=== PATIENT | female | born 1950 | race Caucasian/White ===

== ENCOUNTER → 2016-08-11 | Day surgery (SDC) | payer OTHER ==
[2016-08-06 15:25] VITALS: BMI 27.0
[~2016-08-11] VITALS: Ht 167.6 cm; Wt 77.5 kg
[~2016-08-11] MED LIST: ALBU4TAB10 INH; ALBUAER19 INH; ASPI81TA21 PO; ASPI81TA28 PO; ATOR-22 PO; ATOR-24 PO; ATROPINE SULFATE 0.1 MG/ML 5ML SYR IV PRN; ATV5 PO; BENZ100C84 PO; BIMA0.01 OP; BIMA0.01 OPB; CALC500C70 PO; CARBDRO OPB; CLB/200 PO; CLB200 PO; CLC100 PO; CLINDAMYCIN PHOS 150 MG/ML 2 ML VIAL ONE; CLR10 PO; DEXAMETHASONE SOD INJ 4 MG/ML VIAL ONE; DOXY100C76 PO; EpHEDrine SULFATE INJ 50 MG/ML AMP IV PRN; EpHEDrine SULFATE INJ 50 MG/ML AMP ONE; FENTANYL CITRATE INJ 50 MCG/1 ML 2 ML VIAL IV PRN; FENTANYL CITRATE INJ 50 MCG/1 ML 2 ML VIAL ONE; FOLI1TAB7 PO; GABA-112 PO; GLYCOPYRROLATE INJ 0.2 MG/ML VIAL ONE; LABETALOL HCL IV 5 MG/ML 20ML IV PRN; LACT10CA3; LACT1CAP3 PO; LACTATED RINGER'S 1000ML 1,000 ML IV SCH; LARYING-O-JET KIT (LTA) EXT ONE; LIDOCAINE HCL 2% 2 ML VIAL (20MG/ML) ONE; LORA-741 PO; MIDAZOLAM HCL 1 MG/ML 2ML VIAL ONE; MOME200A INH; MONT1TAB3 PO; MONT1TAB5 PO; NEOSTIGMINE METHYLSULFATE 5 MG/5 ML SYR ONE; OMEG10007 PO; ONDANSETRON INJ 2 MG/ML 2 ML VIAL IV PRN; ONDANSETRON INJ 2 MG/ML 2 ML VIAL ONE; OXGN; OXYC-57 PO; PANT40TA PO; PHENYLEPHRINE HCL INJ 10 MG/ML VIAL ONE; PRED10PA4 PO; PRED10TA PO; PROPOFOL IV EMULSION 10 MG/ML 20 ML VIAL IV ONE; PSYL0.524 PO; PSYL28PO3 PO; PSYL55.43 PO; ROCURONIUM BROMIDE 10 MG/ML 5 ML VIAL ONE; SACC250C3 PO; SPRIN/30 INH; TIOTCAP INH; TRAM-10 PO; ULT50X PO; VNTHFA/IN INH; WATER, STERILE FOR INJ 10 ML VIAL ONE
[2016-08-11 11:20] VITALS: BP 127/56; PULSE 100; TEMP 36.5; O2SAT 97; Ht 167.6 cm; Wt 77.5 kg
--- NOTE | 2016-08-11 14:12 | History & Physical Bridge Note ---
H&P Re-Evaluation Bridge Note: I have examined the patient, reviewed the History & Physical and in the interval since the performance of the History & Physical I have noted the following changes of clinical significance: No changes noted
--- NOTE | 2016-08-11 16:30 | Discharge Instructions ---
Discharge Instructions Admission Reason for Admission: Lung Cancer Discharge Discharge Diagnosis / Problem: Lung Cancer Discharge Goals Goal(s): Learn about illness Activity Recommendations Activity Limitations: resume your previous activity (in 24 hours) Lifting Limitations: none . Instructions / Follow-Up Instructions / Follow-Up 1. You may cough up some blood. Call physician if excessive amount noted. 2. Keep you scheduled appointment with Dr. Harris on August 19 @ 9:30 Current Hospital Diet Patient's current hospital diet: Discharge Diet Recommended Diet: Regular Diet Pending Studies Studies pending at discharge: no Medical Emergencies . Who to Call and When: Medical Emergencies: If at any time you feel your situation is an emergency, please call 911 immediately. . Non-Emergent Contact Non-Emergency issues call your: Surgeon Call Non-Emergent contact if: you have a fever . "Provider Documentation" section prepared by Lacho Nolan. VTE Core Measure Inpt VTE Proph given/why not?: Treatment not tolerated
--- NOTE | 2016-08-11 16:54 | DIAGNOSTIC IMAGING REPORT ---
INTRAOPERATIVE RADIOGRAPHS CLINICAL HISTORY: Navigational bronchoscopy. Fiducial marker placement. Fluoroscopy time: 164 seconds. FINDINGS: 2 spot fluoroscopic views of the left upper chest are presented. Correlation is made with chest CT dated 05/30/2016. The bronchoscope projects over the left upper lung. The second image shows a fiducial in place. IMPRESSION: Intraoperative bronchoscopy images as above. See operative report for detailed findings. Electronically signed by: Glen Novoa M.D. 08/11/2016 4:53 PM Dictated Date/Time: 08/11/2016 4:51 PM
--- NOTE | 2016-08-11 17:01 | DIAGNOSTIC IMAGING REPORT ---
SINGLE VIEW CHEST CLINICAL HISTORY: Status post bronchoscopy and fiducial placement. FINDINGS: An AP, portable, upright chest radiograph is compared to study dated 02/27/2016 and correlated with chest CT dated 05/31/2016. The examination is degraded by portable technique and patient rotation. The cardiomediastinal silhouette is unremarkable. There is atherosclerotic calcification of the thoracic aorta. Advanced emphysema and parenchymal scarring in the right lower lung are similar to previous. There is chronic interstitial thickening. A fiducial now projects over the left upper lobe. Minimal surrounding opacities likely represents trace hemorrhage post procedure. There is no large pleural effusion. Atelectasis is noted at the left lung base. No definite pneumothorax is seen. The skeletal structures are osteopenic. The bony thorax is grossly intact. A benign-appearing sclerotic lesion in the right humeral head is unchanged. IMPRESSION: 1. A fiducial projects over the left apex. No pneumothorax is clearly seen post procedure. 2. Minimal hazy opacities at the left apex around the fiducial likely represent minimal hemorrhage. 3. Advanced emphysema and chronic parenchymal scarring at the right lung base is similar to previous. Electronically signed by: Glen Novoa M.D. 08/11/2016 5:00 PM Dictated Date/Time: 08/11/2016 4:55 PM
--- NOTE | 2016-08-11 17:23 | Anesthesiology Progress Note ---
Anesthesia Post Op Note Date & Time Aug 11, 2016 at 17:23 Vital Signs Pain Intensity: 0 Vital Signs Past 12 Hours Date Time Temp Pulse Resp B/P Pulse Ox O2 Delivery O2 Flow Rate FiO2 08/11/16 17:20 36.2 81 16 110/57 99 Nasal Cannula 2 08/11/16 17:15 36.2 102 16 115/68 99 Nasal Cannula 2 08/11/16 17:05 91 16 109/64 100 Mask 10 08/11/16 16:55 85 16 121/74 100 Mask 10 08/11/16 16:45 36.1 93 16 118/70 100 Mask 10 08/11/16 11:20 36.5 100 22 127/56 97 Room Air Notes Mental Status: alert / awake / arousable, participated in evaluation Pt Amnestic to Procedure: Yes Nausea / Vomiting: adequately controlled Pain: adequately controlled Airway Patency, RR, SpO2: stable & adequate BP & HR: stable & adequate Hydration State: stable & adequate Anesthetic Complications: no major complications apparent CXR negative for pneumothorax
[2016-08-11 17:28] VITALS: BP 94/57; PULSE 92; TEMP 36.7; O2SAT 94
[2016-08-11 18:08] VITALS: BP 104/61; PULSE 89; TEMP 36.7; O2SAT 94
--- NOTE | 2016-08-11 23:51 | OPERATIVE REPORT ---
DATE OF OPERATION: 08/11/2016 PREOPERATIVE DIAGNOSES: 1. Left upper lobe mass. 2. History of small cell carcinoma right lower lobe, treated with chemotherapy and radiation. 3. Active cigarette smoking. POSTOPERATIVE DIAGNOSES: Same. PROCEDURE: 1. Navigational bronchoscopy with biopsy using brush, needles and forceps and washings. 2. Placement of fiducial marker. SURGEON: Dr. Harris. TRADER: BRENDA Leblanc. ANESTHESIA: General anesthesia with endotracheal intubation. INDICATION FOR PROCEDURE AND FINDINGS: Patt Locke is a 66-year-old smoker who developed small cell lung carcinoma several years ago and underwent treatment. This has been quiescent; however, she was noted to have a new mass in her left upper lobe. I was asked to evaluate her for navigational bronchoscopy. I do not think she is a candidate for any type of resection. However, we discussed placing a fiducial marker as should this wood turner to be carcinoma and we would proceed with a possible SBRT. On 08/11/2016, the patient underwent an uncomplicated navigational bronchoscopy with biopsies and multiple different modalities and leaving a fiducial marker. The radio ultrasound helped us quite a bit and we could see that we were at the mass and I marked this with a fiducial marker. She tolerated it well and had no pneumothorax on her x-ray postop. DESCRIPTION OF PROCEDURE: The patient was brought to the operating room and laid in supine position. General anesthesia induced and endotracheal intubation performed with single-lumen tube. Fiberoptic bronchoscope was placed in the endotracheal tube and we registered her airways. I then went into the left upper lobe and I was able to get out to this mass quite easily actually. I could see I was about 1 cm away. The radio ultrasound showed there was a mass. We were very close to the pleura and this was essentially a pleural-based mass. The mass was small, however. I then did brushings x3 as well as needle biopsies with aspiration x3 and then biopsied with forceps with touch preps x3. I then left a fiducial marker. We then did washings by injecting 35 mL of saline through the catheter tip and then suctioning it out as we pulled back. She had no bleeding, whatsoever, from this. She tolerated it quite well, was extubated in the operating room. She had no pneumothorax on her chest x-ray. I attest to the content of the Intraoperative Record and any orders documented therein. Any exceptio ns are noted below.
== END | disposition home or self-care (01) ==
LOC: C.ACU 10:50
PROVIDERS: ATTEND Surgery
DX: R22.2 Localized swelling, mass and lump, trunk (principal); Z85.118 Personal history of other malignant neoplasm of bronchus and lung; J44.9 Chronic obstructive pulmonary disease, unspecified; F17.210 Nicotine dependence, cigarettes, uncomplicated; J20.9 Acute bronchitis, unspecified; F41.9 Anxiety disorder, unspecified; K21.9 Gastro-esophageal reflux disease without esophagitis; J90 Pleural effusion, not elsewhere classified; M06.9 Rheumatoid arthritis, unspecified; Z82.49 Family history of ischemic heart disease and other diseases of the circulatory system; Z83.518 Family history of other specified eye disorder

== ENCOUNTER → 2016-09-07 | Outpatient (CLI) | payer OTHER ==
[~2016-09-07] MED LIST changes: -ATROPINE SULFATE 0.1 MG/ML 5ML SYR IV PRN; -CLINDAMYCIN PHOS 150 MG/ML 2 ML VIAL ONE; -DEXAMETHASONE SOD INJ 4 MG/ML VIAL ONE; -EpHEDrine SULFATE INJ 50 MG/ML AMP IV PRN; -EpHEDrine SULFATE INJ 50 MG/ML AMP ONE; -FENTANYL CITRATE INJ 50 MCG/1 ML 2 ML VIAL IV PRN; -FENTANYL CITRATE INJ 50 MCG/1 ML 2 ML VIAL ONE; -GLYCOPYRROLATE INJ 0.2 MG/ML VIAL ONE; -LABETALOL HCL IV 5 MG/ML 20ML IV PRN; -LACTATED RINGER'S 1000ML 1,000 ML IV SCH; -LARYING-O-JET KIT (LTA) EXT ONE; -LIDOCAINE HCL 2% 2 ML VIAL (20MG/ML) ONE; -MIDAZOLAM HCL 1 MG/ML 2ML VIAL ONE; -NEOSTIGMINE METHYLSULFATE 5 MG/5 ML SYR ONE; -ONDANSETRON INJ 2 MG/ML 2 ML VIAL IV PRN; -ONDANSETRON INJ 2 MG/ML 2 ML VIAL ONE; -PHENYLEPHRINE HCL INJ 10 MG/ML VIAL ONE; -PROPOFOL IV EMULSION 10 MG/ML 20 ML VIAL IV ONE; -ROCURONIUM BROMIDE 10 MG/ML 5 ML VIAL ONE; -WATER, STERILE FOR INJ 10 ML VIAL ONE
[2016-09-07 13:13] LABS: BASO % 0.3 %; BASO ABS # 0.04 K/uL (0-0.2); COMPLETE YES; EOS % 0.5 %; HEMATOCRIT 38.6 % (37-47); IG% 0.5 %; LYMPH % 9.6 %; LYMPH ABS # 1.16 K/uL (1.2-3.4); MEAN CELL VOLUME 97.2 fL (80-100); MEAN CORPUSCULAR HEMOGLOBIN 32.2 pg (25-34); MEAN CORPUSCULAR HGB CONC 33.2 g/dl (32-36); MEAN PLATELET VOLUME 9.8 fL (7.4-10.4); MONO % 6.3 %; NEUT % 82.8 %; PLATELET COUNT 345 K/uL (130-400); RED BLOOD COUNT 3.97 M/uL (4.2-5.4); WHITE BLOOD COUNT 12.07 K/uL (4.8-10.8)
[2016-09-07 13:45] LABS: BLOOD UREA NITROGEN 15 mg/dl (7-18); BUN/CREATININE RATIO 16.1 (10-20); CALCIUM 8.7 mg/dl (8.5-10.1); CARBON DIOXIDE 25 mmol/L (21-32); CHLORIDE 102 mmol/L (98-107); CREATININE 0.93 mg/dl (0.60-1.20); GLUCOSE 90 mg/dl (70-99); MAGNESIUM 2.4 mg/dl (1.8-2.4); POTASSIUM 3.8 mmol/L (3.5-5.1); SODIUM 136 mmol/L (136-145)
== END | disposition home or self-care (01) ==
LOC: C.LAB 12:00
PROVIDERS: ATTEND Surgery
DX: C34.90 Malignant neoplasm of unspecified part of unspecified bronchus or lung (principal); J20.9 Acute bronchitis, unspecified

== ENCOUNTER → 2016-09-07 | Outpatient (CLI) | payer OTHER ==
[~2016-09-07] MED LIST changes: +OPTIRAY 320 IV PRN
--- NOTE | 2016-09-07 08:17 | DIAGNOSTIC IMAGING REPORT ---
CT SCAN OF THE CHEST WITH IV CONTRAST CLINICAL HISTORY: Lung cancer. COMPARISON STUDY: Chest CT scans dated 05/31/2016, 06/12/2014, and 10/22/2011. TECHNIQUE: Following the IV administration of 81 cc of Optiray 320, CT scan of the thorax was performed from the thoracic inlet to the upper abdomen. Images are reviewed in the axial, sagittal, and coronal planes. IV contrast was administered without complication. CT DOSE: 320.08 mGy.cm FINDINGS: Thyroid: Imaged portions of the thyroid gland are normal in size and attenuation. Thoracic aorta: There is atherosclerotic calcification of the thoracic aorta, which is normal in caliber and demonstrates standard 3-vessel arch anatomy. No dissection is seen. Heart: The heart is normal in size and configuration, and without pericardial effusion. The pulmonary trunk is normal in caliber. Lungs and pleural spaces: There is advanced emphysema. No airspace consolidation is identified typical for pneumonia and there is no pleural effusion. Atelectasis is noted at the left lung base. Right-sided perihilar fibrotic change is overall similar appearance to prior examinations. Coarse calcifications are seen centrally, and there is associated volume loss in the right middle and right lower lobes. Fibrotic change in the lingula is also unchanged dating back to 2011. There is a 9 mm irregular nodule in the left upper lobe seen on image #114. This is unchanged from 05/31/2016 but is new from the 2013 examination. An adjacent fiducial is noted in the left upper lobe. This is new from previous. No new pulmonary lesions are identified. Secretions are noted in the left lower lobe airways. Mediastinum: There is no mediastinal lymphadenopathy. Kathleen: The right hilum is largely obscured. No left hilar adenopathy is seen. Axillae: There is no axillary lymphadenopathy. Upper abdomen: Partially visualized upper abdominal viscera is within normal limits. Skeletal structures: The skeletal structures are osteopenic. Mild degenerative changes noted throughout the thoracic spine. No lytic or blastic bony lesions are seen. A benign-appearing sclerotic lesion is again noted in the right humeral head. Subacute/healing right-sided rib fractures are new from 05/31/2016. IMPRESSION: 1. No significant change in parenchymal findings from the 05/31/2016 examination. 2. Advanced emphysema. 3. Right perihilar mass/fibrosis has not significant changed over several prior examinations. 4. A 9 mm irregular nodule in the left upper lobe is similar to previous. An adjacent fiducial is new from the prior study. 5. There is no airspace consolidation typical for pneumonia or pleural effusion. 6. No mediastinal adenopathy is identified. Electronically signed by: Glen Novoa M.D. 09/07/2016 8:15 AM Dictated Date/Time: 09/07/2016 8:02 AM
== END | disposition home or self-care (01) ==
LOC: C.CTS 07:05
PROVIDERS: ATTEND Internal Medicine Hematology & Oncology
DX: C34.2 Malignant neoplasm of middle lobe, bronchus or lung (principal); J43.9 Emphysema, unspecified; J20.9 Acute bronchitis, unspecified

== ENCOUNTER 2016-09-13 10:40 | Inpatient (IN) | payer OTHER ==
[2016-09-08 15:32] VITALS: BMI 27.0
[~2016-09-13] VITALS: Ht 167.6 cm; Wt 77.5 kg
[2016-09-13] VITALS (8 sets, daily range): BP systolic 94–146; BP diastolic 58–96; PULSE 74–115; TEMP 36.3–36.7; O2SAT 92–99; Ht 167.6 cm; Wt 77.5 kg
[~2016-09-13 10:40] MED LIST changes: -ALBU4TAB10 INH; -ASPI81TA28 PO; -ATOR-24 PO; -BENZ100C84 PO; -BIMA0.01 OP; -CLB/200 PO; -CLC100 PO; -DOXY100C76 PO; -GABA-112 PO; -LACT10CA3; -LACT1CAP3 PO; +LACTATED RINGER'S 1000ML 1,000 ML IV SCH; -LORA-741 PO; -MONT1TAB3 PO; -OPTIRAY 320 IV PRN; -OXGN; -OXYC-57 PO; -PANT40TA PO; -PRED10PA4 PO; -PSYL28PO3 PO; -PSYL55.43 PO; -SPRIN/30 INH; -TRAM-10 PO; -ULT50X PO; -VNTHFA/IN INH
[2016-09-13] MEDS ORDERED: MIDAZOLAM HCL 1 MG/ML 2ML VIAL ONE (11:34)
[2016-09-13] MEDS ORDERED: DEXAMETHASONE SOD INJ 4 MG/ML VIAL ONE (11:34)
[2016-09-13] MEDS ORDERED: ROCURONIUM BROMID 50MG/5ML SYR ONE (11:34)
[2016-09-13] MEDS ORDERED: ONDANSETRON INJ 2 MG/ML 2 ML VIAL ONE (11:34)
[2016-09-13] MEDS ORDERED: FENTANYL CITRATE INJ 50 MCG/1 ML 2 ML VIAL ONE ×2 (11:34)
[2016-09-13] MEDS ORDERED: PROPOFOL IV EMULSION 10 MG/ML 20 ML VIAL IV ONE (11:34)
[2016-09-13] MEDS ORDERED: LIDOCAINE HCL 2% 2 ML VIAL (20MG/ML) ONE ×2 (11:35→11:36)
[2016-09-13] MEDS ORDERED: HYDROCORTISONE SOD SUCCINATE 100 MG/2 ML VIAL ONE ×2 (11:36→14:07)
[2016-09-13] MEDS ORDERED: SODIUM CHLORIDE 0.9% PF 50 ML VIAL ONE (11:39)
[2016-09-13] MEDS ORDERED: BUPIVACAINE LIPOSOME 1/3% 266 MG/20 ML VIAL INFIL ONE (11:39)
[2016-09-13] MEDS ORDERED: EpHEDrine SULFATE INJ 50 MG/ML AMP IV PRN ×2 (12:00→15:45)
[2016-09-13] MEDS ORDERED: ATROPINE SULFATE 0.1 MG/ML 5ML SYR IV PRN ×2 (12:00→15:45)
[2016-09-13] MEDS ORDERED: HYDROmorphone INJ 2 MG/ML SYR/VIAL IV PRN (12:00)
[2016-09-13] MEDS ORDERED: ONDANSETRON INJ 2 MG/ML 2 ML VIAL IV PRN ×3 (12:00→15:45)
[2016-09-13] MEDS ORDERED: PHENYLEPHRINE 100MCG/ML 5ML SYR IV PRN (12:00)
[2016-09-13] MEDS ORDERED: FAMOTIDINE 20MG/102 ML D5W IV STA (12:19)
[2016-09-13] MEDS ORDERED: ALBUT/IPRATROP 3MG/0.5MG NEB 3 ML VIAL INH ONE (12:30)
[2016-09-13] MEDS ORDERED: FAMOTIDINE IV INJ 20 MG in DEXTROSE 5% 100ML 100 ML IV ONE (12:45)
[2016-09-13] MEDS ORDERED: CEFAZOLIN SOD 1 GM VIAL ONE ×2 (13:48→14:07)
[2016-09-13] MEDS ORDERED: NEOSTIGMINE METHYLSULFATE 5 MG/5 ML SYR ONE (14:07)
[2016-09-13] MEDS ORDERED: GLYCOPYRROLATE INJ 0.2 MG/ML VIAL ONE (14:07)
[2016-09-13] MEDS ORDERED: ALBUTEROL HFA 8 GM INHALER INH PRN (14:45)
[2016-09-13] MEDS ORDERED: MoRPHine SULFATE 2 MG/ML CARP IV PRN (14:45)
[2016-09-13] MEDS ORDERED: OXYCODONE HCL IR 5 MG TAB (IMMEDIATE RELEASE) PO PRN (14:45)
--- NOTE | 2016-09-13 15:33 | DIAGNOSTIC IMAGING REPORT ---
CHEST ONE VIEW PORTABLE CLINICAL HISTORY: Postop examination. Status post resection COMPARISON STUDY: 08/16/2016 FINDINGS: There is a persistent right perihilar masslike opacity. This has been described on prior studies. There is been interval surgery on the left. There is been resection of the left upper lung zone fiduciary marker. There is a linear band of increased density within the left lung likely postsurgical. There is been insertion of a left-sided chest tube. There is no pneumothorax. Sclerotic densities are present within the proximal right humerus, consistent with either a bone infarct or chondroid lesion.[ IMPRESSION: 1. Interval left lung surgery with placement of a left-sided chest tube. No evidence of pneumothorax. 2. Persistent right perihilar opacity, similar given the differences in technique 3. Emphysema Electronically signed by: Norberto Hayden M.D. 09/13/2016 3:31 PM Dictated Date/Time: 09/13/2016 3:23 PM
--- NOTE | 2016-09-13 15:35 | Anesthesiology Progress Note ---
Anesthesia Post Op Note Date & Time Sep 13, 2016 at 15:34 Vital Signs Pain Intensity: 3 Vital Signs Past 12 Hours Date Time Temp Pulse Resp B/P Pulse Ox O2 Delivery O2 Flow Rate FiO2 09/13/16 15:30 72 16 100/63 93 Nasal Cannula 4 09/13/16 15:20 88 16 116/69 94 Nasal Cannula 4 09/13/16 15:10 90 16 148/77 98 Mask 10 09/13/16 15:00 106 16 157/85 98 Mask 10 09/13/16 14:51 36. 104 16 167/95 98 Mask 10 09/13/16 12:40 85 18 92 Nasal Cannula 2.0 09/13/16 10:57 36.3 115 20 122/96 96 Room Air Notes Mental Status: alert / awake / arousable, participated in evaluation Pt Amnestic to Procedure: Yes Nausea / Vomiting: adequately controlled Pain: adequately controlled Airway Patency, RR, SpO2: stable & adequate BP & HR: stable & adequate Hydration State: stable & adequate Anesthetic Complications: no major complications apparent
[2016-09-13] MEDS ORDERED: FENTANYL CITRATE INJ 50 MCG/1 ML 2 ML VIAL IV PRN (15:45)
[2016-09-13] MEDS ORDERED: DULERA~ORDER AWAITING ACTION SCH (16:00)
[2016-09-13] MEDS: KETOROLAC TROMETHAMINE 15 MG/ML VIAL IV. SCH ×2 (17:28→23:11)
[2016-09-13] MEDS: D5W AND 1/2NSS 1,000 ML IV SCH (17:29)
--- NOTE | 2016-09-13 19:47 | OPERATIVE REPORT ---
DATE OF OPERATION: 09/13/2016 PREOPERATIVE DIAGNOSES: 1. Hypermetabolic mass, left upper lobe. 2. History of small cell carcinoma, right lung (no evidence of disease). POSTOPERATIVE DIAGNOSES: Same. PROCEDURE: Left thoracoscopy with wedge resection of left upper lobe mass. SURGEON: Dr. Harris. APPARATUS ENGINEERING TECHNOLOGIST: BRENDA Leblanc. ANESTHESIA: General anesthesia endotracheal intubation with double lumen tube. SPECIFICS OF PROCEDURE: Patt Locke is a very nice 66-year-old female who was treated for small cell lung carcinoma of the right lung many years ago. She has had no evidence of recurrent disease. The patient has continued smoking however. She underwent a surveillance CT scan and then a PET scan by Dr. Madan Casillas and the patient has hypermetabolic small mass, it is in her left upper lobe. She has very poor lung function. Given this, we elected to proceed with a navigational bronchoscopy. However, we did not get an answer. We discussed this with the cancer conference and elected to proceed with a wedge resection of this mass. On 09/13/2016, the patient was brought to the operating room and underwent uncomplicated left thoracoscopy with wedge resection of this left upper lobe mass. This went without difficulty. We wedged this out. She had no air leak. She had no bleeding. She tolerated it well. We did use an Exparel block. PROCEDURE IN DETAIL: The patient brought to operating room and laid in supine position. General anesthesia induced, endotracheal intubation was performed with a double lumen tube without difficulty. The patient was placed in right lateral decubitus position and left chest prepped and draped in usual sterile fashion. A bit posterior and inferior to the scapular tip, a 5 mm incision was made. A Veress needle was used to enter the pleural cavity after one-lung ventilation ensued. CO2 was insufflated through this and then this needle was removed and a 5 mm port was placed. Upon placing the scope, it was difficult to see this mass. Two 12 mm ports were then placed, one at about the seventh interspace anteriorly and the other at about the fourth interspace just anterior to the latissimus dorsi muscle. We were then able to palpate this mass. It was imbricating the visceral pleura. This was grafted and pulled upward and an Endo-RENARD stapler was used to fire across this and remove this mass. Grossly it seemed like we had good margins. The mass was then delivered off the field in an Endobag. There was no significant air leaking or bleeding at this staple line. 266 mg of Exparel was then mixed with 60 mL total of saline and under thoracoscopic guidance, this was used to perform an intrathoracic block from the 2nd to the 11th rib. She tolerated this quite well. The 24-Belgian chest tube was then placed in the anterior thoracoscopy port and directed towards the apex. The other incisions were closed with a single 0 Vicryl to reapproximate the muscle layers and 4-0 Monocryl was used in running subcuticular fashion to approximate the wound edges. She tolerated it well and was extubated in the room with negligible blood loss. I attest to the content of the Intraoperative Record and any orders documented therein. Any exceptio ns are noted below.
[2016-09-13] MEDS: MOMETASONE FUROATE-FORMOTEROL (DULERA) 200mcg/5mcg per inh INH SCH (20:42)
[2016-09-13] MEDS: DOCUSATE SODIUM 100 MG CAP PO SCH (20:43)
[2016-09-13] MEDS: CALCIUM 600MG + VIT D 400 IU TAB PO SCH (20:44)
[2016-09-13] MEDS: LORAZEPAM 0.5 MG TAB PO SCH (20:47)
[2016-09-13] MEDS ORDERED: BIMATOPROST 0.01% OP SOLN 2.5 ML BTL OPB SCH (21:00)
[2016-09-13] MEDS ORDERED: MONTELUKAST SOD 10 MG TAB PO SCH (21:00)
[2016-09-13] MEDS ORDERED: ATORVASTATIN 20 MG TAB PO SCH (21:00)
[2016-09-13] MEDS: ACETAMINOPHEN IV 1,000 MG in EMPTY BAG 0 ML IV SCH (22:22)
[2016-09-13] MEDS: METOCLOPRAMIDE HCL INJ 5 MG/ML 2 ML VIAL IV. SCH (22:23)
[2016-09-13] MEDS: CEFAZOLIN IV 2,000 MG in DEXTROSE 5% 50ML 100 ML IV SCH (23:10)
[2016-09-14] MEDS: D5W AND 1/2NSS 1,000 ML IV SCH (00:22)
[2016-09-14] MEDS ORDERED: COUGH DROP (SUGAR FREE) LOZ 24 LOZ/1 BOX PO PRN (02:30)
[2016-09-14 03:40] VITALS: BP 113/70; PULSE 81; TEMP 36.6; O2SAT 96
[2016-09-14] MEDS: ACETAMINOPHEN IV 1,000 MG in EMPTY BAG 0 ML IV SCH (05:27)
[2016-09-14] MEDS: METOCLOPRAMIDE HCL INJ 5 MG/ML 2 ML VIAL IV. SCH (05:28)
--- NOTE | 2016-09-14 07:02 | DIAGNOSTIC IMAGING REPORT ---
CHEST ONE VIEW PORTABLE CLINICAL HISTORY: s/p left wedge COMPARISON STUDY: 09/13/2016 FINDINGS: Postsurgical changes are again visualized. The left-sided chest tube remains unchanged in position. There is a persistent right perihilar opacity similar to the prior study. There are bibasal atelectatic changes. There is mild blunting of the lateral costophrenic angles.[ Sclerotic densities within the right proximal humerus remain stable. The findings are consistent with either a bone infarct or chondroid lesion. IMPRESSION: 1. Persistent right perihilar opacity 2. No evidence of pneumothorax. A left-sided chest tube is visualized. It has been pulled back slightly. 3. Suspected bibasal atelectasis Electronically signed by: Norberto Hayden M.D. 09/14/2016 7:01 AM Dictated Date/Time: 09/14/2016 6:59 AM
[2016-09-14 07:30] VITALS: O2SAT 96
[2016-09-14 07:32] VITALS: BP 103/65; PULSE 71; TEMP 36.4; O2SAT 94
[2016-09-14] MEDS: CEFAZOLIN IV 2,000 MG in DEXTROSE 5% 50ML 100 ML IV SCH (07:39)
[2016-09-14] MEDS: KETOROLAC TROMETHAMINE 15 MG/ML VIAL IV. SCH (07:39)
[2016-09-14] MEDS ORDERED: ULT50X PO (08:09)
[2016-09-14] MEDS ORDERED: CLC100 PO (08:14)
--- NOTE | 2016-09-14 08:16 | Discharge Instructions ---
Discharge Instructions Date of Service Sep 14, 2016. Admission Reason for Admission: Left Lung Mass Discharge Discharge Diagnosis / Problem: Left Lung Mass Discharge Goals Goal(s): Learn about illness Activity Recommendations Activity Limitations: as noted below Lifting Limitations: none 1. You may remove dressing in 3 days, then you may shower. No tub baths. 2. Do not fly until cleared to do so by Dr. Harris. 3. Do not drive if taking ultram. Instructions / Follow-Up Instructions / Follow-Up 1. Office appointment with Dr. Harris in 1 week. Office will call you with date and time of appointment. You will need a chest x-ray prior to appointment. Current Hospital Diet Patient's current hospital diet: Regular Diet Discharge Diet Recommended Diet: Regular Diet Procedures Procedures Performed: Left Video-Assisted Thoracoscopy with Left Upper Lobe Wedge Resection Pending Studies Studies pending at discharge: no Medical Emergencies . Who to Call and When: Medical Emergencies: If at any time you feel your situation is an emergency, please call 911 immediately. . Non-Emergent Contact Non-Emergency issues call your: Surgeon Call Non-Emergent contact if: you have a fever, your pain is not controlled, your pain is worsening, wound has increased drainage . "Provider Documentation" section prepared by Lacho Nolan. VTE Core Measure Inpt VTE Proph given/why not?: Enoxaparin (Lovenox)SQ
--- NOTE | 2016-09-14 08:43 | DIAGNOSTIC IMAGING REPORT ---
CHEST ONE VIEW PORTABLE HISTORY: chest tube removal COMPARISON: Chest 09/14/2016. FINDINGS: Left-sided chest tube is been removed. No definite pneumothorax. Improved aeration of the lung bases. Mild cardiomegaly persists. Stable scarlike density within the left upper lobe. Focal right perihilar irregular density also persists. IMPRESSION: 1. Interval removal of the left-sided chest tube. No pneumothorax. 2. Improved aeration at the lung bases. Electronically signed by: Maico Kingston M.D. 09/14/2016 8:41 AM Dictated Date/Time: 09/14/2016 8:39 AM
[2016-09-14 08:50] LABS: PROTHROMBIN TIME (PATIENT) 11.1 SECONDS (9.0-12.0)
[2016-09-14] MEDS: MOMETASONE FUROATE-FORMOTEROL (DULERA) 200mcg/5mcg per inh INH SCH (08:54)
[2016-09-14] MEDS: LORAZEPAM 0.5 MG TAB PO SCH (08:59)
[2016-09-14] MEDS: CALCIUM 600MG + VIT D 400 IU TAB PO SCH (09:00)
[2016-09-14] MEDS ORDERED: TIOTROPIUM BROMIDE 5 PUFF/90 MCG INH INH SCH (09:00)
[2016-09-14] MEDS ORDERED: ARTIFICIAL TEARS OP SOLN OPB SCH ×2 (09:00)
[2016-09-14] MEDS: DOCUSATE SODIUM 100 MG CAP PO SCH (09:00)
[2016-09-14] MEDS ORDERED: LORATADINE 10 MG TAB PO SCH (09:00)
[2016-09-14] MEDS ORDERED: ASPIRIN 81 MG ECTAB PO SCH (09:00)
[2016-09-14] MEDS ORDERED: ENOXAPARIN 40 MG/0.4 ML SYR SQ SCH (09:00)
--- NOTE | 2016-09-14 09:02 | DISCHARGE SUMMARY ---
DATE OF DISCHARGE: 09/14/2016 DISCHARGE DIAGNOSES: 1. 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 2. History of small cell carcinoma right lung years ago. 3. Cigarette smoking. 4. Chronic obstructive pulmonary disease (home O2). HOSPITAL COURSE: Patt Locke is a very nice 66-year-old who had small cell lung carcinoma about 10 years ago which responded remarkably to treatment and she has had no evidence of active disease. She underwent a PET scan and a CT and was found to have a new mass in her left upper lobe. This was hypermetabolic. I did a navigational bronchoscopy, I was unable to get a diagnosis from this. For this reason, I took her to the operating room on 09/14/2016 and wedged this out. This was a very quick case. We had clean margins grossly. This appeared to be a nonsmall cell lung carcinoma on frozen, but we are going to wait for the final pathology to come back. She was discharged home on 09/14/2016 after we pulled her chest tube. Her x-ray looked good. Her incisions were clean. She was eating a diet. I was quite happy with her. I will see her back in the office next week, talk about our different options.
[2016-09-14 10:03] LABS: HEMATOCRIT 34.8 % (37-47); MEAN CELL VOLUME 98.9 fL (80-100); MEAN CORPUSCULAR HGB CONC 33.3 g/dl (32-36); MEAN PLATELET VOLUME 9.6 fL (7.4-10.4); PLATELET COUNT 303 K/uL (130-400); RED BLOOD COUNT 3.52 M/uL (4.2-5.4); WHITE BLOOD COUNT 14.42 K/uL (4.8-10.8)
[2016-09-14 10:26] LABS: CREATININE 0.96 mg/dl (0.60-1.20)
[2016-09-14 11:00] VITALS: BP 103/65; PULSE 71; TEMP 36.4; O2SAT 94
[2016-09-14] MEDS ORDERED: PSYLLIUM 58.6% PWD PACK S\\F PO SCH (11:00)
--- NOTE | 2016-09-14 11:18 | Clinical Documentation Query ---
Mr. MCDONOUGHKAUR : CLINICAL DOCUMENTATION QUERY Patient is a 66 year old female admitted for wedge resection of apparent non-small cell lung carcinoma of the left upper lobe. Discharge diagnoses include "Chronic obstructive pulmonary disease (home O2). As appropriate, consider clarification as suggested below as this directly impacts DRG assignment. Thank you. In your clinical opinion is this patient being managed for: ( x ) Chronic hypoxic respiratory failure ( ) Other explanation of clinical findings (Please Explain) ( ) Unable to determine (Please Define) ( ) Need to Discuss ( ) Not Agree The medical record reflects the following clinical findings, treatment, and risk factors. Clinical Indicators: As above Treatment: Ongoing oxygen supplementation. Risk Factors: COPD, Lung cancer Please clarify and document your clinical opinion in the progress notes and discharge summary. Terms such as "probable", "suspected", "likely", "questionable", "possible", or "still to be ruled out" are acceptable. IF IN AGREEMENT, YOU MUST DOCUMENT ABOVE DIAGNOSTIC STATEMENT IN DAILY PROGRESS NOTES AND DISCHARGE SUMMARY. This document is not part of the patient's record. Thank You, Danie Estrella, [place] [phone]
[2016-10-08] MEDS ORDERED: LACT1CAP3 PO (15:49)
[2016-11-03] MEDS ORDERED: GABA-112 PO (09:55)
[2016-11-03] MEDS ORDERED: OXGN (09:55)
[2016-11-03] MEDS ORDERED: PANT40TA PO (09:55)
[2016-11-03] MEDS ORDERED: PSYL28PO3 PO (09:55)
[2016-11-03] MEDS ORDERED: OXYC-57 PO (10:07)
== END 2016-09-14 11:45 | disposition home or self-care (01) | DRG 165 ==
LOC: ENRESERVTM → ENRESERVDT → C.ACU 10:40 → C.MSN 13:00
PROVIDERS: ADMIT Surgery; ATTEND Surgery
PROC: 0BBG4ZZ Excision of Left Upper Lung Lobe, Percutaneous Endoscopic Approach (ICD-10-PCS; principal; 2016-09-13 13:00)
DX: C34.12 Malignant neoplasm of upper lobe, left bronchus or lung (principal); J44.9 Chronic obstructive pulmonary disease, unspecified; F17.210 Nicotine dependence, cigarettes, uncomplicated; J45.909 Unspecified asthma, uncomplicated; I25.10 Atherosclerotic heart disease of native coronary artery without angina pectoris; I73.9 Peripheral vascular disease, unspecified; E78.5 Hyperlipidemia, unspecified; M19.90 Unspecified osteoarthritis, unspecified site; M06.9 Rheumatoid arthritis, unspecified; H40.9 Unspecified glaucoma; I65.29 Occlusion and stenosis of unspecified carotid artery; F41.9 Anxiety disorder, unspecified; F32.9 Major depressive disorder, single episode, unspecified; Z99.81 Dependence on supplemental oxygen; Z85.118 Personal history of other malignant neoplasm of bronchus and lung; Z92.21 Personal history of antineoplastic chemotherapy; Z92.3 Personal history of irradiation; Z86.73 Personal history of transient ischemic attack (TIA), and cerebral infarction without residual deficits; Z79.1 Long term (current) use of non-steroidal anti-inflammatories (NSAID); Z79.51 Long term (current) use of inhaled steroids; Z79.52 Long term (current) use of systemic steroids; Z79.82 Long term (current) use of aspirin; Z79.899 Other long term (current) drug therapy

== ENCOUNTER → 2016-09-24 | Outpatient (CLI) | payer OTHER ==
[~2016-09-24] MED LIST changes: +ALBU4TAB10 INH; +ASPI81TA28 PO; +ATOR-24 PO; +BENZ100C84 PO; +BIMA0.01 OP; +CLB/200 PO; +CLC100 PO; +GABA-112 PO; +GADAVIST IV PRN; +LACT10CA3; +LACT1CAP3 PO; -LACTATED RINGER'S 1000ML 1,000 ML IV SCH; +LORA-741 PO; +MONT1TAB3 PO; +OXGN; +OXYC-57 PO; +PANT40TA PO; +PSYL28PO3 PO; -SACC250C3 PO; +SPRIN/30 INH; +TRAM-10 PO; +ULT50X PO; +VNTHFA/IN INH
--- NOTE | 2016-09-24 15:35 | DIAGNOSTIC IMAGING REPORT ---
Brain MRI WITH AND WITHOUT CONTRAST HISTORY: Lung cancer. Staging. TECHNIQUE: Multiplanar multisequence MRI of the brain was performed both before and after the intravenous administration of contrast. COMPARISON STUDY: Head CT 02/25/2016. FINDINGS: There is no mass, hematoma, midline shift, or acute infarct. Hypoplastic and opacified right max a sinus. Nasal septal defect. Mild mucosal thickening within the right mastoid air cells. The mastoid or cells are clear. The ventricles and sulci demonstrate mild age-related involutional changes. Patchy areas of T2 hyperintensity seen within the periventricular and subcortical white matter are nonspecific but suggestive of moderate microvascular ischemic changes. The major vascular flow voids at the skull base are well-maintained. No abnormal enhancement. Stable 4 mm T1 and T2 hyperintense lesion within the left parietal bone. This likely represents a hemangioma. IMPRESSION: No evidence for metastatic disease within the brain. Electronically signed by: Maico Kingston M.D. 09/24/2016 3:33 PM Dictated Date/Time: 09/24/2016 3:23 PM
--- NOTE | 2016-09-24 15:53 | DIAGNOSTIC IMAGING REPORT ---
TWO VIEW CHEST CLINICAL HISTORY: Pleural effusion. Cancer history with previous surgery. FINDINGS: PA and lateral chest radiographs are compared to study dated 09/14/2016 and correlated with chest CT dated 09/07/2016. The PA view is degraded by patient rotation. The cardiomediastinal silhouette is unremarkable. There is atherosclerotic calcification of the thoracic aorta. Advanced emphysema and perihilar scarring/fibrosis in the right lower lung are similar to previous. There is chronic interstitial thickening. Sequential projects over the left upper lobe. No airspace consolidation is identified typical for pneumonia and there is no pleural effusion. Atelectasis is present at the lung bases. No pneumothorax is seen. The skeletal structures are osteopenic. The bony thorax is grossly intact. A benign-appearing sclerotic lesion in the right humeral head is unchanged. IMPRESSION: 1. Emphysema with chronic parenchymal and postoperative changes as above. 2. There is no airspace consolidation typical for pneumonia or pleural effusion. Electronically signed by: Glen Novoa M.D. 09/24/2016 3:52 PM Dictated Date/Time: 09/24/2016 3:49 PM
== END | disposition home or self-care (01) ==
LOC: C.MRI 14:09
PROVIDERS: ATTEND Internal Medicine Hematology & Oncology
DX: C34.12 Malignant neoplasm of upper lobe, left bronchus or lung (principal)

== ENCOUNTER → 2016-09-29 | Outpatient (CLI) | payer OTHER ==
[~2016-09-29] MED LIST changes: -GADAVIST IV PRN
--- NOTE | 2016-09-29 13:55 | DIAGNOSTIC IMAGING REPORT ---
PET/CT HISTORY: LUNG CANCER TECHNIQUE: PET/CT was performed from the base of the skull through the pelvis following the intravenous administration of 14.5 mCi of F18-FDG. Non-contrast CT imaging was performed over the same range without breath-hold for attenuation correction of PET images and anatomic correlation, but not for primary interpretation as it is not of standard diagnostic quality. CT DOSE: COMPARISON: Chest CT 09/07/2016. PET CT 12/16/2014. FINDINGS: HEAD AND NECK: Mild focal FDG uptake within the anterior aspect of the left stone, mastoid muscle on image 24. However, there is no soft tissue mass. Therefore, this may be physiologic. Focal cord uptake is likely physiologic. No FDG avid or enlarged cervical lymph nodes. Symmetric perfusion within the brain. CHEST: Emphysema. Interval wedge resection for a left upper lobe pulmonary nodule. There is mild FDG uptake along the suture line. There is also a 6 mm nodule adjacent to the left upper lobe suture. This also demonstrates FDG uptake with an SUV max of 2.8. Right perihilar partially calcified consolidation is not severe change in size. However, there is increased FDG uptake surrounding the calcified area. This demonstrates an SUV max of 4, previously demonstrating an SUV max of 2.5. Similar focal FDG uptake within the bilateral ninfa measure an SUV max of 4 on the right. However, there are no enlarged lymph nodes identified by CT. No FDG avid or enlarged mediastinal lymph nodes. ABDOMEN/PELVIS: Below the diaphragm, tracer is distributed physiologically in the gastrointestinal and genitourinary tracts. There is no significant lymphadenopathy and no FDG-avid disease. MUSCULOSKELETAL: There is no FDG-avid or destructive bone lesion. IMPRESSION: 1. Interval wedge resection for left upper lobe pulmonary nodule. There is mild FDG uptake associated with the suture line. There is also an FDG avid 6 mm nodule adjacent to the suture. This could be due to postoperative change. However, a small metastatic focus cannot be excluded. [address] follow-up is recommended to assess for stability. 2. Right perihilar partially calcified consolidation is unchanged in size. However, there is progressive FDG uptake associated with the calcified area. This is nonspecific and bears watching future examinations to exclude developing neoplastic change. 3. Focal FDG uptake within the bilateral ninfa remains unchanged. There are no enlarged hilar lymph nodes identified on CT. 4. Healing right rib fractures. Electronically signed by: Maico Kingston M.D. 09/29/2016 1:53 PM Dictated Date/Time: 09/29/2016 1:33 PM
== END | disposition home or self-care (01) ==
LOC: C.PET 08:58
PROVIDERS: ATTEND Internal Medicine Hematology & Oncology
DX: C34.12 Malignant neoplasm of upper lobe, left bronchus or lung (principal)

== ENCOUNTER → 2016-10-12 | Outpatient (CLI) | payer OTHER ==
[~2016-10-12] MED LIST changes: -CLC100 PO; -ULT50X PO
--- NOTE | 2016-10-12 09:37 | DIAGNOSTIC IMAGING REPORT ---
CHEST 2 VIEWS ROUTINE HISTORY: Pleural effusion. Follow-up. COMPARISON: Chest 09/24/2016. FINDINGS: No pneumothorax. Left upper lobe suture material is again noted. Stable scarlike density within the right midlung zone. Emphysema. No pleural effusions. The heart is stable in size. Left basilar interstitial thickening remains unchanged and is likely chronic. Stable benign sclerotic focus within the right humeral head. IMPRESSION: No significant change compared to the prior study. No acute process. Stable right midlung zone scarlike density. Electronically signed by: Maico Kingston M.D. 10/12/2016 9:35 AM Dictated Date/Time: 10/12/2016 9:33 AM
== END | disposition home or self-care (01) ==
LOC: C.RAD 09:08
PROVIDERS: ATTEND Surgery
DX: J90 Pleural effusion, not elsewhere classified (principal)

== ENCOUNTER 2016-10-13 07:29 | Day surgery (SDC) | payer OTHER ==
[2016-10-08 16:00] VITALS: BMI 27.0
[~2016-10-13] VITALS: Ht 167.6 cm; Wt 77.5 kg
[~2016-10-13 07:29] MED LIST changes: +ACETAMINOPHEN 500 MG TAB PO SCH; -ALBU4TAB10 INH; -ASPI81TA28 PO; -ATOR-24 PO; -BENZ100C84 PO; -BIMA0.01 OP; +BUPIVACAINE LIPOSOME 266 MG, BUPIVACAINE/EPINEPHRINE INJ 50 ML, SODIUM CHLORIDE 0.9% PF... INFIL SCH; +CEFAZOLIN 2000 MG/60 ML D5W 60 ML IV SCH; -CLB/200 PO; +FAMOTIDINE 20 MG TAB PO SCH; -GABA-112 PO; +GABAPENTIN 300 MG CAP PO SCH; -LACT10CA3; +LACTATED RINGER'S 1000ML 1,000 ML IV SCH; -LORA-741 PO; +METOCLOPRAMIDE HCL 10 MG TAB PO SCH; -MONT1TAB3 PO; -OXGN; -OXYC-57 PO; -PANT40TA PO; -PSYL28PO3 PO; +SCOPOLAMINE 1.5 MG TDSY TD SCH; -SPRIN/30 INH; -TRAM-10 PO; +TRANEXAMIC ACID INJ 1,000 MG in SODIUM CHLORIDE 0.9% 100ML 100 ML IV SCH; -VNTHFA/IN INH
--- NOTE | 2016-10-13 07:57 | Discharge Instructions ---
Discharge Instructions Date of Service Oct 13, 2016. Visit Reason for Visit: Non-Small Cell Lung Cancer Discharge Discharge Diagnosis / Problem: Non-Small Cell Lung Cancer Discharge Goals Goal(s): Learn about illness Activity Recommendations Activity Limitations: resume your previous activity (in 24 hours) Anesthesia . Post Anesthesia Instructions: If you have had General Anesthesia or IV Sedation: * Do not drive today. * Resume driving when surgeon permits. * Do not make important decisions or sign legal documents today. * Call surgeon for: 1. Temperature elevations greater than 101 degrees F. 2. Uncontrollable pain. 3. Excessive bleeding. 4. Persistent nausea and vomiting. 5. Medication intolerance (nausea, vomiting or rash). * For nausea and vomiting use only clear liquids such as: tea, soda, bouillon until nausea subsides, then gradually increase diet as tolerated. * If you have any concerns or questions, call your surgeon's office. If physician is unavailable and it is an emergency, call 911 or go to the nearest emergency room. . Instructions / Follow-Up Instructions / Follow-Up 1. Call physician if you noted any difficulty breathing, swallowing, or increased swelling at surgical incision. 2. Keep your scheduled appointment with Kimberly Gonzalez on October 18 @ 11:30. You will need a Chest x-ray prior to appointment. Diet Recommendations Recommended Home Diet: resume previous diet Pending Studies Studies pending at discharge: no Medical Emergencies . Who to Call and When: Medical Emergencies: If at any time you feel your situation is an emergency, please call 911 immediately. . Non-Emergent Contact Non-Emergency issues call your: Surgeon Call Non-Emergent contact if: you have a fever, your pain is not controlled, wound has increased drainage . . "Provider Documentation" section prepared by Lacho Nolan.
[2016-10-13] MEDS ORDERED: BENZ100C84 PO (08:04)
[2016-10-13 08:05] VITALS: BP 120/66; PULSE 95; TEMP 36.5; O2SAT 97; Ht 167.6 cm; Wt 77.5 kg
[2016-10-13] MEDS ORDERED: FENTANYL CITRATE INJ 50 MCG/1 ML 2 ML VIAL ONE (08:22)
[2016-10-13] MEDS ORDERED: ROCURONIUM BROMIDE 10 MG/ML 5 ML VIAL ONE (08:22)
[2016-10-13] MEDS ORDERED: MIDAZOLAM HCL 1 MG/ML 2ML VIAL ONE (08:22)
[2016-10-13] MEDS ORDERED: PROPOFOL IV EMULSION 10 MG/ML 20 ML VIAL IV ONE (08:22)
[2016-10-13] MEDS ORDERED: PHENYLEPHRINE HCL INJ 10 MG/ML VIAL ONE (09:05)
[2016-10-13] MEDS ORDERED: CEFAZOLIN SOD 1 GM VIAL ONE (09:17)
[2016-10-13] MEDS ORDERED: ATOR-24 PO (09:29)
[2016-10-13] MEDS ORDERED: ALBU4TAB10 INH (09:29)
[2016-10-13] MEDS ORDERED: FOLI1TAB7 PO (09:29)
[2016-10-13] MEDS ORDERED: PRED10TA PO (09:29)
[2016-10-13] MEDS ORDERED: MONT1TAB3 PO (09:29)
[2016-10-13] MEDS ORDERED: BIMA0.01 OP (09:29)
[2016-10-13] MEDS ORDERED: SPRIN/30 INH (09:29)
[2016-10-13] MEDS ORDERED: MOME200A INH (09:29)
[2016-10-13] MEDS ORDERED: CALC500C70 PO (09:29)
[2016-10-13] MEDS ORDERED: OMEG10007 PO (09:29)
[2016-10-13] MEDS ORDERED: ASPI81TA28 PO (09:29)
[2016-10-13] MEDS ORDERED: CLR10 PO (09:29)
[2016-10-13] MEDS ORDERED: LACT10CA3 (09:29)
[2016-10-13] MEDS ORDERED: LORA-741 PO (09:29)
[2016-10-13] MEDS ORDERED: CLB/200 PO (09:29)
[2016-10-13] MEDS ORDERED: EpHEDrine SULFATE INJ 50 MG/ML AMP IV PRN (09:30)
[2016-10-13] MEDS ORDERED: FENTANYL CITRATE INJ 50 MCG/1 ML 2 ML VIAL IV PRN (09:30)
[2016-10-13] MEDS ORDERED: HYDROmorphone INJ 1 MG/ML SYR IV PRN (09:30)
[2016-10-13] MEDS ORDERED: ONDANSETRON INJ 2 MG/ML 2 ML VIAL IV PRN (09:30)
[2016-10-13] MEDS ORDERED: ATROPINE SULFATE 0.1 MG/ML 5ML SYR IV PRN (09:30)
[2016-10-13] MEDS ORDERED: LIDOCAINE HCL 2% 2 ML VIAL (20MG/ML) ONE (09:38)
[2016-10-13] MEDS ORDERED: NEOSTIGMINE METHYLSULFATE 5 MG/5 ML SYR ONE (09:47)
[2016-10-13] MEDS ORDERED: GLYCOPYRROLATE INJ 0.2 MG/ML VIAL ONE (09:47)
[2016-10-13] MEDS ORDERED: ALBUTEROL HFA INHALER 8.5 GM INH ONE (10:02)
[2016-10-13] MEDS ORDERED: TRAM-10 PO (10:03)
[2016-10-13 10:10] VITALS: PULSE 93; O2SAT 99
[2016-10-13] MEDS ORDERED: ALBUT/IPRATROP 3MG/0.5MG NEB 3 ML VIAL INH PRN (10:15)
[2016-10-13] MEDS ORDERED: RACEPINEPHRINE 2.25% NEBU SOLN 0.5 ML VIAL INH PRN (10:15)
[2016-10-13 10:22] VITALS: PULSE 93; O2SAT 99
--- NOTE | 2016-10-13 10:32 | DIAGNOSTIC IMAGING REPORT ---
CHEST ONE VIEW PORTABLE CLINICAL HISTORY: s/p mediastinoscopy postoperative evaluation COMPARISON STUDY: 10/12/2016 FINDINGS: No evidence pneumothorax post procedural. Slightly progressive infiltrative change right and to lesser extent left base. IMPRESSION: No evidence pneumothorax. Slightly progressive bibasilar infiltrative change Electronically signed by: Francesco Aranda M.D. 10/13/2016 10:31 AM Dictated Date/Time: 10/13/2016 10:28 AM
--- NOTE | 2016-10-13 10:37 | OPERATIVE REPORT ---
DATE OF OPERATION: 10/13/2016 PREOPERATIVE DIAGNOSES: 1. Nonsmall cell lung carcinoma, left upper lobe. 2. History of small cell carcinoma, right lower lobe. POSTOPERATIVE DIAGNOSIS: Same. PROCEDURE: Staging mediastinoscopy. SURGEON: Dr. Harris. SPECIFICS OF THE PROCEDURE: Patt Locke is a 66-year-old female who underwent chemotherapy and radiation for definitive therapy for a small cell carcinoma, right lower lobe several years ago. She has continued to smoke and has had no evidence of disease until recently when a new mass was noted in her left upper lobe. She is on oxygen at night. She has significant chronic obstructive pulmonary disease. We attempted a navigational bronchoscopy and did not get an answer and Dr. Madan Casillas and I both felt we were dealing with a new primary. For this reason, I had marked this mass with a fiducial marker and I took her to the operating room and did a wedge resection and indeed this is a nonsmall cell lung carcinoma. We had not staged her mediastinum. After a long discussion at the cancer conference we elected to proceed with video mediastinoscopy. On 10/13/2016 the patient underwent uncomplicated video mediastinoscopy and 7 different lymph node stations were biopsied. Bilateral level 2, bilateral level 4, bilateral level 10 and level 7 nodes were biopsied. We got into really no bleeding. We were very careful on the left side and did not use the cautery and did not dissect out much. She tolerated it quite well. OPERATION AND FINDINGS: PROCEDURE: The patient brought to the operating room and laid in supine position. General anesthesia induced and endotracheal intubation was performed single lumen tube. The patient's neck was prepped and draped in usual sterile fashion after extending it. Prophylactic antibiotics were given. After appropriate timeout had been called, an incision was made one fingerbreadth above the sternal notch. This was dissected down to the strap muscles which were divided in the midline. The pretracheal plane was gently developed and then I used blunt dissection with my finger to get down into the mediastinum. I did not feel any bulky nodes. The video mediastinoscope was then placed gently. I came down immediately and saw a cluster of level 2 nodes, which were biopsied. We got into very little bleeding with this. There was a larger cluster of level 4 nodes and I biopsied several of these. I did use the cautery here. I then went down below the azygos vein and went down onto the right mainstem bronchus and biopsied the level 10 node. We really got no bleeding with this. There were several nodes in the level 7 area and we gently dissected out several of these. I biopsied these also. We really got into no bleeding with this. I then gently went down to the left mainstem bronchus and stayed anteriorly and came upon a level 10 node, a little further down the bronchus which I biopsied. We were not using the cautery on this side. The level 4 nodes were a bit larger and I biopsied these. The recurrent laryngeal nerve was seen and care was taken to avoid injury to this. Coming up further I then biopsied the level 2 node. As stated, we did not use cautery on the left side. There was really no significant bleeding. I then slowly withdrew the video mediastinoscope. I closed the strap muscles with 3-0 Vicryl in a running continuous fashion, 4-0 Monocryl was used in a running subcuticular fashion to approximate the wound edges. She tolerated it well. I attest to the content of the Intraoperative Record and any orders documented therein. Any exceptio ns are noted below.
[2016-10-13] MEDS ORDERED: DEXAMETHASONE SOD INJ 4 MG/ML VIAL IV PRN (10:45)
[2016-10-13] MEDS ORDERED: NURSING VERBAL MED ORDER ONE (10:50)
[2016-10-13] MEDS ORDERED: DEXAMETHASONE SOD INJ 4 MG/ML VIAL ONE (10:52)
--- NOTE | 2016-10-13 11:44 | Anesthesiology Progress Note ---
Anesthesia Post Op Note Date & Time Oct 13, 2016 at 11:39 Vital Signs Pain Intensity: 0 Vital Signs Past 12 Hours Date Time Temp Pulse Resp B/P Pulse Ox O2 Delivery O2 Flow Rate FiO2 10/13/16 11:33 87 26 10/13/16 11:33 90 26 97 10/13/16 11:31 124/64 10/13/16 11:28 86 19 92 10/13/16 11:28 85 19 10/13/16 11:27 125/64 10/13/16 11:25 36.5 10/13/16 11:25 87 25 10/13/16 11:25 92 25 92 10/13/16 11:21 127/57 10/13/16 11:20 91 22 90 10/13/16 11:20 88 22 10/13/16 11:16 119/61 10/13/16 11:15 86 24 10/13/16 11:15 91 24 94 10/13/16 11:11 132/70 10/13/16 11:10 97 12 90 10/13/16 11:10 92 12 10/13/16 11:06 130/74 10/13/16 11:05 91 23 10/13/16 11:05 91 23 91 10/13/16 11:00 91 21 151/78 95 10/13/16 11:00 91 21 10/13/16 10:59 92 24 10/13/16 10:59 92 24 95 10/13/16 10:56 136/79 10/13/16 10:54 97 30 10/13/16 10:54 100 30 95 10/13/16 10:50 156/78 10/13/16 10:49 101 18 98 10/13/16 10:49 97 18 10/13/16 10:45 163/72 10/13/16 10:44 101 19 96 10/13/16 10:44 101 19 10/13/16 10:41 153/89 10/13/16 10:39 99 21 10/13/16 10:39 98 21 98 10/13/16 10:35 183/84 10/13/16 10:34 107 15 10/13/16 10:34 105 15 96 10/13/16 10:33 108 19 95 10/13/16 10:33 108 19 10/13/16 10:31 163/81 10/13/16 10:28 100 15 10/13/16 10:28 100 15 98 10/13/16 10:25 168/85 10/13/16 10:23 102 21 10/13/16 10:23 103 21 97 10/13/16 10:22 93 12 99 Diffusion Mask 10.0 10/13/16 10:21 165/96 10/13/16 10:18 96 18 10/13/16 10:18 97 18 98 10/13/16 10:17 184/174 10/13/16 10:13 107 24 99 10/13/16 10:13 96 24 10/13/16 10:11 165/85 10/13/16 10:10 93 12 99 Diffusion Mask 10.0 10/13/16 10:08 90 20 99 10/13/16 10:08 90 20 10/13/16 10:07 145/100 10/13/16 10:03 36.0 96 16 151/99 100 Mask 10 10/13/16 10:03 90 22 151/99 100 10/13/16 10:03 85 22 10/13/16 08:05 36.5 95 18 120/66 97 Room Air Notes Mental Status: alert / awake / arousable, participated in evaluation Pt Amnestic to Procedure: Yes Nausea / Vomiting: adequately controlled Pain: adequately controlled Airway Patency, RR, SpO2: stable & adequate BP & HR: stable & adequate Hydration State: stable & adequate Anesthetic Complications: no major complications apparent Ms. Locke awoke from anesthesia easily and was taken to the PACU on [place] oxygen. We noted that patient had a very irritated airway as she was coughing and also appeared to have a mild inspiratory stridor. In the PACU, I wrote for a Duneb treatment followed immediately by a racemic epinephrine nebulizer. Patient's saturations stayed above 90% the entire time and after the breathing treatments she appeared to calm down and the coughing stopped. I no longer was able to hear any stridor when I auscultated her chest and neck. Patient did have some mild voice changes but she was able to converse with me easily. I had the patient stay in PACU for a little longer than usual for extended monitoring and at 1140 I felt patient was stable enough to be transferred to phase 2 recovery. CXR did not show any acute issues per attending surgeon. I also expressed my initial concerns with her stridor to Dr. Harris who personally examined the patient at bedside. He did suggest that patient receive another small dose of IV steroid (decadron), which was done (I wrote for an additional 4mg). Patient is currently on [place] oxygen and has SpO2 of 97%. All questions were answered and patient will be closely followed in phase 2 prior to discharge to home if she meet criteria and she has no further respiratory issues.
[2016-10-13 11:45] VITALS: BP 113/67; PULSE 85; TEMP 36.7; O2SAT 97
[2016-10-13 12:15] VITALS: BP 120/71; PULSE 85; O2SAT 97
[2016-10-13 12:50] VITALS: BP 142/73; PULSE 87; TEMP 36.8; O2SAT 95
[2016-10-13] MEDS ORDERED: CHECK SCOPOLAMINE PATCH PLACEMENT SCH (16:00)
[2016-11-03] MEDS ORDERED: OXGN (09:55)
[2016-11-03] MEDS ORDERED: GABA-112 PO (09:55)
[2016-11-03] MEDS ORDERED: PSYL28PO3 PO (09:55)
[2016-11-03] MEDS ORDERED: PANT40TA PO (09:55)
[2016-11-03] MEDS ORDERED: OXYC-57 PO (10:07)
== END 2016-10-13 12:58 | disposition home or self-care (01) ==
LOC: C.ACU 07:29
PROVIDERS: ATTEND Surgery
DX: C34.12 Malignant neoplasm of upper lobe, left bronchus or lung (principal); J44.9 Chronic obstructive pulmonary disease, unspecified; Z92.21 Personal history of antineoplastic chemotherapy; Z92.3 Personal history of irradiation; F17.210 Nicotine dependence, cigarettes, uncomplicated; R10.31 Right lower quadrant pain; M06.9 Rheumatoid arthritis, unspecified

== ENCOUNTER 2016-11-03 10:20 | Emergency (ER) | payer OTHER ==
[~2016-11-03] VITALS: Ht 170.2 cm; Wt 74.8 kg
[~2016-11-03 10:20] MED LIST changes: -ACETAMINOPHEN 500 MG TAB PO SCH; +ALBU4TAB10 INH; -ALBUAER19 INH; -ASPI81TA21 PO; +ASPI81TA28 PO; -ATOR-22 PO; +ATOR-24 PO; -ATV5 PO; +BENZ100C84 PO; +BIMA0.01 OP; -BIMA0.01 OPB; -BUPIVACAINE LIPOSOME 266 MG, BUPIVACAINE/EPINEPHRINE INJ 50 ML, SODIUM CHLORIDE 0.9% PF... INFIL SCH; -CEFAZOLIN 2000 MG/60 ML D5W 60 ML IV SCH; +CLB/200 PO; -CLB200 PO; -FAMOTIDINE 20 MG TAB PO SCH; +GABA-112 PO; -GABAPENTIN 300 MG CAP PO SCH; +LACT10CA3; -LACT1CAP3 PO; -LACTATED RINGER'S 1000ML 1,000 ML IV SCH; +LORA-741 PO; -METOCLOPRAMIDE HCL 10 MG TAB PO SCH; +MONT1TAB3 PO; -MONT1TAB5 PO; +OXGN; +OXYC-57 PO; +PANT40TA PO; -PSYL0.524 PO; +PSYL28PO3 PO; -SCOPOLAMINE 1.5 MG TDSY TD SCH; +SPRIN/30 INH; -TIOTCAP INH; +TRAM-10 PO; -TRANEXAMIC ACID INJ 1,000 MG in SODIUM CHLORIDE 0.9% 100ML 100 ML IV SCH
[2016-11-03 10:28] VITALS: TEMP 36.6; Ht 170.2 cm; Wt 74.8 kg
[2016-11-03 11:03] VITALS: O2SAT 90
[2016-11-03] MEDS ORDERED: MoRPHine SULFATE 4 MG/ML 1 ML CARP\\VIAL IV STA (11:19)
[2016-11-03] MEDS ORDERED: ONDANSETRON INJ 2 MG/ML 2 ML VIAL IV STA (11:19)
--- NOTE | 2016-11-03 11:21 | EMERGENCY ROOM VISIT NOTE ---
History Report prepared by Rico: Soy Alonso Under the Supervision of: Dr. Danie Torres M.D. First contact with patient: 11:10 Chief Complaint: SHORTNESS OF BREATH Stated Complaint: LEFT SIDE PAIN FROM SURG. 09/10 Nursing Triage Summary: Triage note: pt reports left flank pain and shortness of breath since her surgery and the pain and sob is increasing. pt was seen at [facility] ed yesterday and has ct scan report with her. pt reports she had a left lobe of her lung removed in september at [facility]. History of Present Illness The patient is a 66 year old female who presents to the Emergency Room with complaints of worsening left rib pain since her surgery a month ago. The patient has a history of lung cancer and had a resection surgery a month ago. Since the surgery, the patient's discomfort has been worsening. She also complains of shortness of breath and difficulty with her voice. The patient was at [facility] last night where they did a X-Ray and CT scan who said everything looked okay. She also presented to her doctor this morning who recommended she present to the ED for further evaluation because he was concerned about her significant discomfort. Source of History: patient, transfer records, family, treating provider Onset: the past month Position: other (left rib) Timing: worsening Associated Symptoms: + SOB Note: Other associated symptoms: difficulty with voice Review of Systems See HPI for pertinent positives & negatives. A total of 10 systems reviewed and were otherwise negative. Past Medical & Surgical Medical Problems: (1) Esophageal reflux (2) Falls frequently (3) Hyperlipidemia (4) Lung nodule (5) Malignant pleural effusion (6) Metastatic lung carcinoma (7) Sepsis Old medical records were reviewed. Nurse's notes were reviewed and I agree with. Family History Cancer Heart disease Social History Smoking Status: Never Smoker Drug Use: none Marital Status: Housing Status: lives with significant other Current/Historical Medications Scheduled Aspirin (Aspirin Ec), 81 MG PO DAILY Atorvastatin (Lipitor), 1 TAB PO HS Bimatoprost (Lumigan), 1 DROPS OP HS Calcium/Vitamin D (Os-Nate 500 Plus D), 1 TAB PO BID Celecoxib (CeleBREX), 200 MG PO DAILY Folic Acid (Folvite), 1 TAB PO BID Gabapentin (Neurontin), 100 MG PO TID Lorazepam (Ativan), 0.5 MG PO TID Mometasone Furoate-Formoterol (Dulera 200/5 Mcg), 2 PUFFS INH BID Montelukast Sodium (Singulair), 10 MG PO HS Oxygen (Oxygen), 2 LITERS NA HS Pantoprazole (Protonix), 40 MG PO DAILY Prednisone (Prednisone), 10 MG PO DAILY Psyllium (Metamucil Smooth Texture), 1 DOSE PO DAILY Tiotropium [place] (Spiriva Handihaler), 1 CAP INH DAILY Scheduled PRN Albuterol Hfa (Ventolin Hfa), 2 PUFFS INH DAILY PRN for Shortness of Breath Oxycodone/Acetaminophen 5MG/325MG (Percocet 5MG/325MG), 1 TABLET PO Q6H PRN for Pain Allergies Coded Allergies: Moxifloxacin (Verified Allergy, Severe, ANAPHYLAXIS, 11/03/16) PT STATES THROAT STARTED TO SWELL SHUT Physical Exam Vital Signs Date Time Temp Pulse Resp B/P Pulse Ox O2 Delivery O2 Flow Rate FiO2 11/03/16 14:03 99 22 116/66 96 Room Air 2.0 11/03/16 13:35 98 11/03/16 13:35 99 22 122/84 95 Nasal Cannula 2.0 11/03/16 12:25 90 24 115/69 95 Nasal Cannula 2.0 11/03/16 11:21 96 26 97 Nasal Cannula 2.0 11/03/16 11:06 94 11/03/16 11:03 Nasal Cannula 2.0 11/03/16 11:03 90 Room Air 11/03/16 10:28 36.6 98 20 128/79 96 Room Air Physical Exam General: Chronically ill-appearing older female who is hoarse when she speaks. HEENT: Normal cephalic atraumatic. Pupils are equal round and reactive to light. Extraocular movements are intact. Oropharynx is pink with moist mucous membranes. No swelling of the mouth lips or tongue. Swallowing without difficulty. Neck: Supple with a midline trachea. No meningeal signs or stiffness, no JVD or bruits. No Stridor. Chest: Clear to auscultation bilaterally. No wheezes or rhonchi. No increased work of breathing. No respiratory compromise. Chest wall healing incisions from surgery, no redness, warmth or swelling. No rash. Minimally tender along the incision above the rib. Heart: regular rate and rhythm. Abdomen: Soft nontender, nondistended without rebound guarding or rigidity. Extremities: No cyanosis clubbing or edema. No calf tenderness or assymetry Spine/Back. Non tender to palpation. No CVA tenderness Skin: Good turgor without rashes. Neurologic exam: Cranial nerves two through 12 are intact. Motor and sensation are intact and symmetrical throughout. Medical Decision & Procedures ER Provider Diagnostic Interpretation: X-ray results as stated below per interpretation by me and the radiologist: CHEST ONE VIEW PORTABLE CLINICAL HISTORY: Atypical chest pain COMPARISON STUDY: 10/13/2016 FINDINGS: The heart is normal in size. There is a stable right infrahilar opacity. There is diffuse interstitial thickening. There are platelike atelectatic changes at the left lung base. There is no pneumothorax. There are right proximal humeral calcifications consistent with either a bone infarct or chondroid lesion.[ Postsurgical changes are present within the left upper lung zone. IMPRESSION: 1. Emphysema 2. Stable right infrahilar opacity, likely representing scar 3. Interval development of platelike atelectatic changes at the left lung base 4. Underlying interstitial thickening Electronically signed by: Norberto Hayden M.D. 11/03/2016 12:13 PM Dictated Date/Time: 11/03/2016 12:11 PM Laboratory Results 11/03/16 10:55 Red Blood Count 3.83, Mean Corpuscular Volume 100.3, Mean Corpuscular Hemoglobin 32.9, Mean Corpuscular Hemoglobin Concent 32.8, Mean Platelet Volume 10.1, Neutrophils (%) (Auto) 70.0, Lymphocytes (%) (Auto) 14.5, Monocytes (%) ( Auto) 12.4, Eosinophils (%) (Auto) 2.3, Basophils (%) (Auto) 0.4, Neutrophils # (Auto) 7.99, Lymphocytes # (Auto) 1.65, Monocytes # (Auto) 1.41, Eosinophils # ( Auto) 0.26, Basophils # (Auto) 0.04 11/03/16 10:55 Test 11/03/16 10:55 11/03/16 11:26 11/03/16 12:10 White Blood Count 11.40 K/uL (4.8-10.8) Red Blood Count 3.83 M/uL (4.2-5.4) Hemoglobin 12.6 g/dL (12.0-16.0) Hematocrit 38.4 % (37-47) Mean Corpuscular Volume 100.3 fL (80-100) Mean Corpuscular Hemoglobin 32.9 pg (25-34) Mean Corpuscular Hemoglobin Concent 32.8 g/dl (32-36) Platelet Count 317 K/uL (130-400) Mean Platelet Volume 10.1 fL (7.4-10.4) Neutrophils (%) (Auto) 70.0 % Lymphocytes (%) (Auto) 14.5 % Monocytes (%) (Auto) 12.4 % Eosinophils (%) (Auto) 2.3 % Basophils (%) (Auto) 0.4 % Neutrophils # (Auto) 7.99 K/uL (1.4-6.5) Lymphocytes # (Auto) 1.65 K/uL (1.2-3.4) Monocytes # (Auto) 1.41 K/uL (0.11-0.59) Eosinophils # (Auto) 0.26 K/uL (0-0.5) Basophils # (Auto) 0.04 K/uL (0-0.2) RDW Standard Deviation 57.0 fL (36.4-46.3) RDW Coefficient of Variation 15.6 % (11.5-14.5) Immature Granulocyte % (Auto) 0.4 % Immature Granulocyte # (Auto) 0.05 K/uL (0.00-0.02) Anion Gap 6.0 mmol/L (3-11) Est Creatinine Clear Calc Drug Dose 60.0 ml/min Estimated GFR () 70.9 Estimated GFR (Non- 61.2 BUN/Creatinine Ratio 18.0 (10-20) Calcium Level 9.6 mg/dl (8.5-10.1) Total Bilirubin 0.4 mg/dl (0.2-1) Direct Bilirubin < 0.1 mg/dl (0-0.2) Aspartate Amino Transf (AST/SGOT) 9 U/L (15-37) Alanine Aminotransferase (ALT/SGPT) 20 U/L (12-78) Alkaline Phosphatase 102 U/L (45-117) Total Protein 7.7 gm/dl (6.4-8.2) Albumin 3.7 gm/dl (3.4-5.0) Lipase 130 U/L (73-393) Bedside Troponin I 0.000 ng/ml (0-0.045) Prothrombin Time 11.0 SECONDS (9.0-12.0) Prothromb Time International Ratio 1.0 (0.9-1.1) Activated Partial Thromboplast Time 25.1 SECONDS (21.0-31.0) Partial Thromboplastin Ratio 1.0 Laboratory studies as stated above per my review. Medications Administered Medications (Trade) Dose Ordered Sig/Juan Route Start Time Stop Time Status Last Admin Dose Admin Morphine Sulfate (MoRPHine SULFATE INJ) 4 mg NOW STAT IV 11/03/16 11:19 11/03/16 11:24 DC 11/03/16 11:33 4 MG Ondansetron HCl (Zofran Inj) 4 mg NOW STAT IV 11/03/16 11:19 11/03/16 11:24 DC 11/03/16 11:32 4 MG ECG Indication: other Rate (beats per minute): 91 Rhythm: normal sinus Findings: no acute ischemic change, no ectopy, other (low voltage ) Change: no significant change (when compared to February 27, 2016) ED Course 1155: Past medical records reviewed. The patient was evaluated in room C5, and a complete history and physical examination were performed. 1119: Ordered Zofran Inj 4 mg IV, Morphine Sulfate 4 mg IV. 1256: At this time, I discussed the patient's case with Dr. Harris - Thoracic Surgery [facility] and he agreed to come to the ED and see the patient. 1344: At this time, I discussed the patient's case with Dr. Harris - Thoracic Surgery [facility] and he updated me on the patient. He is planning to send the patient home. 1412: Upon reevaluation, the patient is resting. I discussed the results and treatment plan with her. She verbalized agreement of the treatment plan. The patient was discharged home. Medical Decision Differential diagnoses include infection, post-operative complication, pneumonia , CHF, electrolyte or metabolic abnormality. This patient comes in as described above. She was placed in room C5. She is here for treatment and evaluation continuing left-sided chest pain. She's had this after having a partial lung resection. She's had some worsens as well. She's had no fever chills or redness or warmth. She was seen in the ER in [place] last night given OxyIR which she said helped. She was seen in radiation oncology today and referred to the ER for pain management and evaluation. She had a CAT scan yesterday in [place] which I reviewed and there is no acute findings of the chest or abdomen this was done with IV contrast. Chest x-ray today shows no acute changes. She's no acute electrolyte or metabolic abnormalities. She's had nothing to suggest acute cardiac event. She was given IV morphine and IV Zofran feeling much better resting comfortably. I did consult Dr. Harris, who saw the patient in the ER , and feels that she can go home and they will follow up with her as an outpatient. Consults Time Called: [phone] Consulting Physician: Dr. Harris - Thoracic Surgery [facility] Returned Call: [phone] At this time, I discussed the patient's case with Dr. Harris and he agreed to come to the ED and see the patient. Additional Consults: Time Called: [phone] Consulted Physician: Dr. Harris - Thoracic Surgery [facility] Returned Call: 1343 Additional Comments: At this time, I discussed the patient's case with Dr. Harris and he updated me on the patient. He is planning to send the patient home. Impression Primary Impression: Left sided chest pain Additional Impression: Status post thoracotomy Scribe Attestation The scribe's documentation has been prepared under my direction and personally reviewed by me in its entirety. I confirm that the note above accurately reflects all work, treatment, procedures, and medical decision making performed by me. Departure Information Dispostion Home / Self-Care Referrals Agustin Fuentes M.D. (PCP) Forms HOME CARE DOCUMENTATION FORM, IMPORTANT VISIT INFORMATION Patient Instructions My [facility] Additional Instructions Rest Drink plenty of fluids Return if: Worsening of symptoms, fever or chills, recent pain or problems any new problems or concerns. Continue pain medication as per Dr. Harris Follow-up and further instructions as per Dr. Harris Problem Qualifiers
[2016-11-03 11:47] LABS: BASO % 0.4 %; BASO ABS # 0.04 K/uL (0-0.2); COMPLETE YES; EOS % 2.3 %; HEMATOCRIT 38.4 % (37-47); IG% 0.4 %; LYMPH % 14.5 %; LYMPH ABS # 1.65 K/uL (1.2-3.4); MEAN CELL VOLUME 100.3 fL (80-100); MEAN CORPUSCULAR HEMOGLOBIN 32.9 pg (25-34); MEAN CORPUSCULAR HGB CONC 32.8 g/dl (32-36); MEAN PLATELET VOLUME 10.1 fL (7.4-10.4); MONO % 12.4 %; PLATELET COUNT 317 K/uL (130-400); RED BLOOD COUNT 3.83 M/uL (4.2-5.4)
[2016-11-03] MEDS ORDERED: VNTHFA/IN INH (11:47)
[2016-11-03 11:54] LABS: BLOOD UREA NITROGEN 17 mg/dl (7-18); CALCIUM 9.6 mg/dl (8.5-10.1); CARBON DIOXIDE 30 mmol/L (21-32); CHLORIDE 104 mmol/L (98-107); CREATININE 0.96 mg/dl (0.60-1.20); GLUCOSE 96 mg/dl (70-99); POTASSIUM 3.8 mmol/L (3.5-5.1); SODIUM 140 mmol/L (136-145)
--- NOTE | 2016-11-03 12:15 | DIAGNOSTIC IMAGING REPORT ---
CHEST ONE VIEW PORTABLE CLINICAL HISTORY: Atypical chest pain COMPARISON STUDY: 10/13/2016 FINDINGS: The heart is normal in size. There is a stable right infrahilar opacity. There is diffuse interstitial thickening. There are platelike atelectatic changes at the left lung base. There is no pneumothorax. There are right proximal humeral calcifications consistent with either a bone infarct or chondroid lesion.[ Postsurgical changes are present within the left upper lung zone. IMPRESSION: 1. Emphysema 2. Stable right infrahilar opacity, likely representing scar 3. Interval development of platelike atelectatic changes at the left lung base 4. Underlying interstitial thickening Electronically signed by: Norberto Hayden M.D. 11/03/2016 12:13 PM Dictated Date/Time: 11/03/2016 12:11 PM
[2016-11-03 14:03] VITALS: BP 116/66; PULSE 99; O2SAT 96
--- NOTE | 2016-11-03 14:17 | SURGICAL CONSULTATION ---
DATE OF CONSULTATION: 11/03/2016 Ms. Locke was seen today in the Emergency Room on 11/03/2016. Three weeks ago today we did a video mediastinoscopy. The patient stated she has been hoarse and there is possibility she has a paralyzed left vocal cord; however, I would doubt it as we were extremely careful on the left side. She and I talked about this in detail before the operation. The reason she came to the Emergency Room today is she is complaining of pain in her left chest. She underwent a thoracoscopy with a biopsy of a left upper lobe mass back on 09/13/2016 and really did not complain of pain after she got over the initial surgery. She now states she is having severe pain. She states that she cannot do anything because of the pain, although she is walking. She has been eating fairly well. She has not lost weight. She did not injure her chest. A CT scan was obtained at [facility] yesterday when she presented with this increasing pain. I asked to see her back, we had an appointment next week, but she came to the Emergency Room at [facility] today. The patient's lymph nodes were all negative. She is very hoarse. I am going to have her see Dr. Suarez to see that she does not have a vocal cord paralysis. If she does, we will talk about a medializing procedure. The patient is quite anxious. She is also requiring oxygen. Her saturations are about 89%-90% off of oxygen. Told her to keep her oxygen on, I gave her pain medication in the form of Percocet and told her to take these liberally and I will see her back. She has been on Neurontin and really has not had a response to this. The patient is quite anxious. Her family feels that she is unstable on her feet, but she tells me that she has been walking 3 times a day and I encouraged her to continue doing that. One of her problems is she is quite anxious about being treated for this cancer. She was actually evaluated by Dr. Suarez today for radiation therapy. I think her anxiety plays a lot into this. She has been treated with chemotherapy and radiation in years past. I told her to take the narcotics liberally and I will see her back in the office in about 2 weeks. I have assured her this will resolve. We will have her see Dr. Suarez about her vocal cord.
[2016-11-03 15:36] LABS: ALKALINE PHOSPHATASE 102 U/L (45-117); ALT/SGPT 20 U/L (12-78); AST/SGOT 9 U/L (15-37)
== END 2016-11-03 14:22 | disposition home or self-care (01) ==
LOC: C.EDB 10:22 → C.EDC 14:22
DX: R07.89 Other chest pain (principal); Z98.890 Other specified postprocedural states; K21.9 Gastro-esophageal reflux disease without esophagitis; R06.02 Shortness of breath; C34.90 Malignant neoplasm of unspecified part of unspecified bronchus or lung; Z91.81 History of falling; Z90.2 Acquired absence of lung [part of]; Z79.52 Long term (current) use of systemic steroids; Z79.82 Long term (current) use of aspirin; Z79.899 Other long term (current) drug therapy; C34.12 Malignant neoplasm of upper lobe, left bronchus or lung

== ENCOUNTER → 2016-11-15 | Outpatient (CLI) | payer OTHER ==
[~2016-11-15] MED LIST changes: -ALBU4TAB10 INH; -BENZ100C84 PO; -CARBDRO OPB; -CLR10 PO; -LACT10CA3; -OMEG10007 PO; -TRAM-10 PO; +VNTHFA/IN INH
== END | disposition home or self-care (01) ==
LOC: C.PATHSPEC 12:57
PROVIDERS: ATTEND Surgery
DX: C34.12 Malignant neoplasm of upper lobe, left bronchus or lung (principal)

== ENCOUNTER 2016-11-22 11:54 | Inpatient (IN) | payer OTHER ==
[~2016-11-22] VITALS: Ht 162.6 cm; Wt 73.4 kg
[2016-11-22 16:00] VITALS: BP 145/86; PULSE 97; TEMP 36.5; O2SAT 96; BMI 27.1
[2016-11-22] MEDS ORDERED: ACETAMINOPHEN 325 MG TAB PO PRN (16:15)
[2016-11-22] MEDS ORDERED: ALUMINUM/MAGNESIUM/SIMETH (MAALOX MAX) 30 ML UDC PO PRN (16:15)
[2016-11-22] MEDS ORDERED: MAGNESIUM HYDROXIDE SUSP 30 ML UDC PO PRN (16:15)
[2016-11-22] MEDS ORDERED: ALBUTEROL HFA 8 GM INHALER INH PRN (16:15)
[2016-11-22] MEDS ORDERED: OXYCODONE/ACETAMINOPHEN 5-325 TAB PO PRN (16:15)
[2016-11-22] MEDS ORDERED: POLYETHYLENE (MIRALAX) 17 GM PACK PO PRN (16:15)
[2016-11-22] MEDS ORDERED: ONDANSETRON INJ 2 MG/ML 2 ML VIAL IV PRN (16:15)
[2016-11-22] MEDS ORDERED: LORAZEPAM 2 MG/ML 1 ML VIAL IV STA (16:27)
--- NOTE | 2016-11-22 16:46 | History and Physical ---
History & Physical Date of Service November 22, 2016. History & Physical Hospitalist attending Pt seen/examined in conjunction with resident All orders, history and related documentation reviewed by myself Unfortunate 66 y/o F w/Hx SCLCA treated with radiation and chemo - CA recurrence which was diagonosed as adenoCA - resected - underwent mediastinoscopy 2 months prior and has had progressive dysphagia since - suspected laryngeal nerve damage O/E Tearful and frustrated middle-aged female in no physical distress AAO x 3 S1,2 R CTAB NT, ND No CCE Voice is horse P: Admitted for IVF, speech/swallow eval and ENT consultation Complete resident note reviewed
--- NOTE | 2016-11-22 17:05 | History and Physical ---
History & Physical Date & Time of Service: November 22, 2016 at 16:33 Chief Complaint: Hemoptysis, Lung Cancer, Copd Primary Care Physician: Agustin Fuentes M.D. History of Present Illness Source: patient 66 year old female with a PMH of Lung Carcinoma, and COPD was a direct admit from outpatient office for worsening dysphagia and hoarseness Over the past 3 days the patient has been experiencing worsening dysphagia which was originally solids but is now liquids. For the past 3 days she has been only able to sip 4-5 ounces of liquid at a time. During some of these episodes she will cough the liquid back up and the liquid will be mixed with blood. Over the past month she has had to switch to a soft liquid diet after having a staging mediastinoscopy done by Dr. Harris on 10/13/2016. She has also had progressive worsening in the hoarseness of her voice over the past month after the staging mediastinoscopy. Her voice has become so soft that it is at a wisper. She has denied any changes in bowel habits, nausea, fevers, chest pain or worsening cough. She was diagnosed with a recurrence of lung cancer during a biopsy done on 08/11. She had a biopsy done which showed adenocarcinoma that was staged as T1NO after her staging mediastinoscopy showed no lymph node involvement. She has seen Dr. Casillas (Oncology) as an outpatient and it was decided between the two of them to hold off on chemo until her voice hoarseness and difficult swallowing had resolved. She was seen in the emergency department 3 weeks ago for chest pain and voice hoarseness. The workup for the chest pain was negative and the patient was sent home with percocet and follow up with ENT as an outpatient. Her appointment with ENT is December 09. 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 Her oxygen requirements have also been increasing from only at night to intermittent daily use of up to 2L of oxygen. She uses her home inhalers regularly. She lives at home with her who works 5 days a week and is unable to look after her at home. She does not have any home help and due to her increasing oxygen requirements her ADL's have become more difficult. Past Medical/Surgical History Medical Problems: (1) Malignant pleural effusion Status: Chronic (2) Metastatic lung carcinoma Status: Chronic Family History Cancer Heart disease Mother -stroke at 70 Father- leukemia at 72 3 brother living 1 brother unknown 3 sisters living 1 sister thymus Social History Smoking Status: Former Smoker (50 pack year) Alcohol Use: none Drug Use: none Marital Status: Housing status: lives with significant other Occupational Status: retired Allergies Coded Allergies: Moxifloxacin (Verified Allergy, Severe, ANAPHYLAXIS, 11/03/16) PT STATES THROAT STARTED TO SWELL SHUT Home Medications Scheduled Aspirin (Aspirin Ec), 81 MG PO DAILY Atorvastatin (Lipitor), 1 TAB PO HS Bimatoprost (Lumigan), 1 DROPS OP HS Calcium/Vitamin D (Os-Nate 500 Plus D), 1 TAB PO BID Celecoxib (CeleBREX), 200 MG PO DAILY Folic Acid (Folvite), 1 TAB PO BID Gabapentin (Neurontin), 100 MG PO TID Lorazepam (Ativan), 0.5 MG PO TID Mometasone Furoate-Formoterol (Dulera 200/5 Mcg), 2 PUFFS INH BID Montelukast Sodium (Singulair), 10 MG PO HS Oxygen (Oxygen), 2 LITERS NA HS Pantoprazole (Protonix), 40 MG PO DAILY Prednisone (Prednisone), 10 MG PO DAILY Psyllium (Metamucil Smooth Texture), 1 DOSE PO DAILY Tiotropium [place] (Spiriva Handihaler), 1 CAP INH DAILY Scheduled PRN Albuterol Hfa (Ventolin Hfa), 2 PUFFS INH DAILY PRN for Shortness of Breath Oxycodone/Acetaminophen 5MG/325MG (Percocet 5MG/325MG), 1 TABLET PO Q6H PRN for Pain Review of Systems Constitutional: No chills, No fever, No sweats ENT: + trouble swallowing, No hearing loss, No nasal symptoms, No sore throat, No tinnitus, No unusual epistaxis Respiratory: + cough, + dyspnea on exertion, + hemoptysis, + shortness of breath, + sputum Cardiovascular: + edema, + palpitations, No chest pain, No claudication Abdomen: No constipation, No diarrhea, No nausea, No pain, No vomiting Neurologic: No memory loss, No numbness/tingling, No paralysis, No vertigo Psychiatric: + anxiety, + depression symptoms, No substance abuse Physical Exam Vital Signs Date Time Temp Pulse Resp B/P Pulse Ox O2 Delivery O2 Flow Rate FiO2 11/22/16 16:00 36.5 97 24 145/86 96 Room Air General Appearance: WD/WN, no apparent distress, + pertinent finding (patient appears anxious at rest) Head: normocephalic, atraumatic Eyes: normal inspection, PERRL, EOMI ENT: hearing grossly normal, pharynx normal Neck: supple, no adenopathy, thyroid normal, no JVD, no carotid bruits, trachea midline Respiratory/Chest: chest non-tender, lungs clear, no respiratory distress, no accessory muscle use, + decreased breath sounds (more predominant on the left), + pertinent finding (decreased resonance to percussion on the left) Cardiovascular: regular rate, rhythm, no edema, no JVD, normal peripheral pulses, + systolic murmur (heard best over the pulmonic valve) Abdomen/GI: normal bowel sounds, non tender, soft, no organomegaly Extremities/Musculoskelatal: no calf tenderness, normal capillary refill, no pedal edema, normal range of motion Neurologic/Psych: alert, oriented x 3 Diagnostics Laboratory Results Results Past 24 Hours Test 11/22/16 16:09 Range/Units Impression Assessment and Plan 66 year old with PMH of Adenocarcinoma of the lung presents with worsening dysphagia and voice hoarseness after staging mediastinoscopy done 1 month ago Dysphagia and voice hoarseness - ENT consult (Dr. Suarez) - Barium swallow study ordered - Speech evaluate and treat - Liquid diet with NPO after midnight except for meds - Maintenance IV fluids - continue percocet 1/2 tab at bedtime for pain Adenocarcinoma of the lung - Stage T1NO - Follows Dr. Casillas as outpatient COPD - continue prednisone tabs prescribed as outpatient - continue regular inhalers - continue 2L of oxygen (titrate to 88-92%) Hx of TIA - continue aspirin 81mg Hx of Hyperlipidemia - continue atorvastatin Hx of glaucoma - continue bimatoprost Anxiety - ativan prn q8 - would be reasonable to consider SSRI before discharge Diet - full liquid - NPO after midnight DVT prophylaxis - lovenox Code - Not discussed yet Resident Physician Supervision Note: Pt seen/examined independently Please see addendum under hospitalist progress note Documented By: Sekou Brady Level of Care Med/Surg Advanced Directives Existing Living Will: Yes Existing Power of Base Cloth Inspector: Yes VTE Prophylaxis VTE Risk Assessment Done? Y/N: Yes Risk Level: High Given or contraindicated: Enoxaparin (Lovenox)SQ
[2016-11-22 17:06] LABS: HEMATOCRIT 35.4 % (37-47); MEAN CELL VOLUME 96.7 fL (80-100); MEAN CORPUSCULAR HEMOGLOBIN 31.7 pg (25-34); MEAN CORPUSCULAR HGB CONC 32.8 g/dl (32-36); MEAN PLATELET VOLUME 9.8 fL (7.4-10.4); PLATELET COUNT 317 K/uL (130-400); RED BLOOD COUNT 3.66 M/uL (4.2-5.4); WHITE BLOOD COUNT 12.22 K/uL (4.8-10.8)
[2016-11-22 17:15] LABS: PROTHROMBIN TIME (PATIENT) 11.2 SECONDS (9.0-12.0)
[2016-11-22 17:26] LABS: CREATININE 0.84 mg/dl (0.60-1.20)
[2016-11-22] MEDS: SODIUM CHLORIDE 0.9% 1000ML 1,000 ML IV SCH (17:41)
--- NOTE | 2016-11-22 18:57 | ENT CONSULTATION ---
DATE OF CONSULTATION: 11/22/2016 CHIEF COMPLAINT: I have been asked by Dr. Agustin Alvarado to evaluate this patient with "dysphagia and hoarseness" HISTORY OF PRESENT ILLNESS: The patient is an unfortunate 66-year-old female whom I have already seen in consultation in my office on 11/11/2016 upon the request of Dr. Pernell Harris for the evaluation of hoarseness after she underwent a wedge resection of the left upper lobe mass and then a staging video mediastinoscopy. She had biopsies from several different lymph node stations, all of which were negative for malignancy. She had a questionable positive margin on her wedge resection. Since her procedure was done on October 13, she has had problems with hoarseness, difficulty breathing, and dysphagia primarily for liquids but also progressing now to involve solid foods as well. She has a complex oncological history in that she had a history of small cell lung carcinoma treated with chemotherapy and radiation to the right lower lobe more than 10 years ago and was found to have a new mass involving her left upper lobe for which she underwent these procedures. 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 There was no movement of either vocal fold or arytenoids bilaterally. In addition, she had severe breathy hoarseness, smell of cigarette smoke, and was chronically ill appearing. She has a large septal perforation of which the patient admitted to using cocaine in the past upon me finding this on physical examination. I recommended a referral to a tertiary care center to see Dr. Kris Rodriguez at the [facility] for a laryngeal EMG to help determine whether or not either side is temporary versus permanent paralysis. She may need a CO2 laser cordotomy to improve her airway, which unfortunately will sacrifice her voice to some extent. She tells me that she does not have an appointment at the [facility] with Dr. Rodriguez until December 09. She was admitted today with progressive dysphagia and failure to thrive. She states that she has had no worsening shortness of breath and has had no stertor or stridor except the nurse tells me that the patient walked up all 4 flights of stairs to her inpatient room and did have some stridor and stertor with this exertion. She is also having some hemoptysis and is down 3 pounds from 2 weeks ago. ALLERGIES: AVELOX. CURRENT MEDICATIONS: Baby aspirin, Protonix, prednisone, Spiriva, Metamucil, atorvastatin, Singulair, Lumigan eyedrops, Caltrate D, folic acid, lorazepam, Lovenox subcutaneously, Tylenol p.r.n., Maalox p.r.n., Milk of magnesia p.r.n., MiraLax p.r.n., Zofran p.r.n., albuterol p.r.n., Percocet p.r.n. PAST MEDICAL HISTORY: 1. As above. 2. Chronic tobacco abuse. 3. History of cocaine abuse. 4. Anxiety. 5. COPD. 6. Reflux. 7. Dyslipidemia. 8. Rheumatoid arthritis. PAST SURGICAL HISTORY: 1. As above. 2. Status post hysterectomy. 3. Status post breast surgery. 4. Status post Infusaport placement and removal. FAMILY HISTORY: There is a family history of diabetes, coronary artery disease, cerebrovascular accident, leukemia, and hypertension. SOCIAL HISTORY: The patient has a 19-iulm-ppde smoking history and continues to smoke. She has a history of cocaine abuse in the past. She is retired. She has 2 children. REVIEW OF SYSTEMS: The patient has had progressive dysphagia not only for thin liquids, but now also for solid foods. She has lost 3 pounds over the past 2 weeks. She denies any change in her severe breathy hoarseness and she denies any resting shortness of breath but does have dyspnea on exertion. She is quite anxious. She is quite frustrated with her condition. PHYSICAL EXAMINATION: This is an elderly white female with severe breathy hoarseness, which is unchanged from when I saw her 11 days ago. She has no stertor or stridor. She has a large septal perforation. There is no longer any thrush involving her oral cavity and oropharynx for which I treated her on November 11 with Diflucan, which has resolved this condition. She has no known lymphadenopathy or thyroid nodularity. ASSESSMENT AND RECOMMENDATIONS: A 66-year-old female with complex oncological history to include a new left upper lobe carcinoma with questionable positive margin for which she will likely need further radiation plus or minus chemotherapy. Unfortunately, she has bilateral true vocal fold paralysis and has had progressive dysphagia. My strong recommendation is that she be transferred to the [facility]. Further expedite her care and for her to ultimately see Dr. Kris Rodriguez for management of her bilateral true vocal fold paralysis. Again, she would likely benefit from laryngeal EMG to help determine whether each side is temporary versus permanent paralysis. She may benefit from an airway perspective from a CO2 laser cordotomy but this may worsen her voice and perhaps her dysphagia. She may benefit from a feeding tube whether that be done here at the [facility]. A speech and swallow consult was ordered by the admitting physician, and they have ordered a barium swallow and video swallow. Most likely, she will fail this and once again I believe that the prudent thing to do would be to transfer this patient to [facility] so that she can have more definitive treatment. I will sign off on this consultation, but if you need any further assistance regarding this patient's management, please do not hesitate to contact me. EDVIN
[2016-11-22 19:59] VITALS: BP 121/73; PULSE 92; TEMP 36.4; O2SAT 99
[2016-11-22] MEDS: LORAZEPAM 0.5 MG TAB PO SCH (20:43)
[2016-11-22] MEDS: CALCIUM 600MG + VIT D 400 IU TAB PO SCH (20:44)
[2016-11-22] MEDS: MONTELUKAST SOD 10 MG TAB PO SCH (20:45)
[2016-11-22] MEDS: BIMATOPROST 0.01% OP SOLN 2.5 ML BTL OP SCH (20:45)
[2016-11-22] MEDS: ATORVASTATIN 40 MG TAB PO SCH (20:45)
[2016-11-22] MEDS: ENOXAPARIN 40 MG/0.4 ML SYR SQ SCH (20:53)
[2016-11-23] VITALS: BP 108/65; PULSE 80; TEMP 36.4; O2SAT 93
[2016-11-23] MEDS: SODIUM CHLORIDE 0.9% 1000ML 1,000 ML IV SCH ×3 (03:01→21:27)
[2016-11-23 06:46] VITALS: BMI 27.7
[2016-11-23] MEDS: TIOTROPIUM BROMIDE 5 PUFF/90 MCG INH INH SCH (07:22)
[2016-11-23] MEDS: CALCIUM 600MG + VIT D 400 IU TAB PO SCH ×2 (07:24→19:34)
[2016-11-23] MEDS: PANTOprazole SOD 40 MG TAB PO SCH (07:24)
[2016-11-23] MEDS: ASPIRIN 81 MG ECTAB PO SCH (07:24)
[2016-11-23] MEDS: PSYLLIUM 58.6% PWD PACK S\\F PO SCH (07:25)
[2016-11-23] MEDS: LORAZEPAM 0.5 MG TAB PO SCH ×3 (07:27→19:38)
[2016-11-23 07:44] VITALS: BP 121/75; PULSE 82; TEMP 36.6; O2SAT 96
[2016-11-23 07:49] LABS: HEMATOCRIT 31.7 % (37-47); MEAN CELL VOLUME 97.8 fL (80-100); MEAN CORPUSCULAR HEMOGLOBIN 32.4 pg (25-34); MEAN CORPUSCULAR HGB CONC 33.1 g/dl (32-36); MEAN PLATELET VOLUME 9.9 fL (7.4-10.4); PLATELET COUNT 280 K/uL (130-400); RED BLOOD COUNT 3.24 M/uL (4.2-5.4); WHITE BLOOD COUNT 9.81 K/uL (4.8-10.8)
[2016-11-23 11:59] VITALS: BP 108/69; PULSE 83; TEMP 36.4; O2SAT 96
--- NOTE | 2016-11-23 12:12 | DIAGNOSTIC IMAGING REPORT ---
VIDEO SWALLOW STUDY CLINICAL HISTORY: Lung cancer. Hemoptysis. COMPARISON STUDY: No priors. Fluoroscopy time: 3.3 minutes. FINDINGS: Fluoroscopic guidance is provided to the Department of Speech Pathology in performing a video swallow study. The patient consumed barium impregnated pudding, nectar-thick liquid, cracker with paste, and thin barium while the swallowing mechanism was observed in real-time. There was silent aspiration seen with thin barium. No penetration or aspiration was seen with the additional sampled textures. Esophageal dysmotility is observed. IMPRESSION: 1. There was silent aspiration with thin barium. 2. No penetration or aspiration was seen with the remaining sampled textures. 3. See dedicated speech pathology report for detailed findings and recommendations. Dictated: 11/23/2016 11:45 AM Transcribed: 11/23/2016 12:12 PM [email or web address] Electronically signed by: Glen Novoa M.D. 11/23/2016 12:14 PM Dictated Date/Time: 11/23/2016 11:45 AM
[2016-11-23 15:06] VITALS: BP 101/69; PULSE 74; TEMP 36.7; O2SAT 97
--- NOTE | 2016-11-23 15:15 | Hospitalist Progress Note ---
Hospitalist Progress Note Date of Service November 23, 2016. (Pat Daniels ., PA-C) Subjective Pt evaluation today including: conversation w/ patient, conversation w/ family (Sister, Brittney) Voiding: no voiding problems, no incontinence Patient very anxious/tearful with situation. Has been having difficulty with swallowing for approximately 3 weeks now. Admits to weight loss. Admits to coughing with food intake.+hemoptysis x3 weeks. Patient denies any fever, chills , sweats, lightheadedness, dizziness, vision changes, CP, palpitations, edema, wheezing, cough, abdominal pain, nausea, vomiting, diarrhea, urinary symptoms, melena, numbness/tingling, weakness, muscle/joint pain, depression, active bleeding, or new skin discoloration/changes. Spoke with sisterClari on the phone. She has noticed a significant decline in patient since dysphagia started. She has noticed patient becoming increasing weak. At home, she has not been able to ambulate or care for herself due to weakness. If plan is for patient to be discharged and keep scheduled follow-up, she would like PT/OT to see patient and evaluate needed for acute inpt rehab. (Pat Daniels ., PA-C) Medications Current Inpatient Medications Medications (Trade) Dose Ordered Sig/Juan Route Start Time Stop Time Status Last Admin Dose Admin Enoxaparin Sodium (Lovenox Inj) 40 mg Q24H SQ 11/22/16 21:00 12/22/16 20:59 11/22/16 20:53 40 MG Acetaminophen (Tylenol Tab) 650 mg Q4H PRN PO 11/22/16 16:15 12/22/16 16:14 Al Hydrox/Mg Hydrox/Simethicone (Maalox Max Susp) 15 ml Q4H PRN PO 11/22/16 16:15 12/22/16 16:14 Magnesium Hydroxide (Milk Of Magnesia Susp) 30 ml Q6H PRN PO 11/22/16 16:15 12/22/16 16:14 Polyethylene (Miralax Powder Packet) 17 gm DAILY PRN PO 11/22/16 16:15 12/22/16 16:14 Ondansetron HCl (Zofran Inj) 4 mg Q6H PRN IV 11/22/16 16:15 12/22/16 16:14 Albuterol (Ventolin Hfa Inhaler) 2 puffs DAILY PRN INH 11/22/16 16:15 12/22/16 16:14 Aspirin (Ecotrin Tab) 81 mg DAILY PO 11/23/16 08:00 12/23/16 07:59 11/23/16 07:24 81 MG Atorvastatin Calcium (Lipitor Tab) 40 mg HS PO 11/22/16 21:00 12/22/16 20:59 11/22/16 20:45 40 MG Calcium/Vitamin D (Caltrate Plus Tab) 1 tab BID PO 11/22/16 20:00 12/22/16 19:59 11/22/16 20:44 1 TAB Folic Acid (Folvite Tab) 1 mg BID PO 11/22/16 20:00 12/22/16 19:59 11/23/16 07:24 1 MG Lorazepam (Ativan Tab) 0.5 mg TID PO 11/22/16 20:00 12/22/16 19:59 11/23/16 12:53 0.5 MG Montelukast Sodium (Singulair Tab) 10 mg HS PO 11/22/16 21:00 12/22/16 20:59 11/22/16 20:45 10 MG Oxycodone/ Acetaminophen (Percocet 5-325mg Tab) 1 tab Q6H PRN PO 11/22/16 16:15 12/06/16 16:14 Pantoprazole Sodium (Protonix Tab) 40 mg DAILY PO 11/23/16 08:00 12/23/16 07:59 11/23/16 07:24 40 MG Prednisone (PredniSONE TAB) 10 mg DAILY PO 11/23/16 08:00 12/23/16 07:59 11/23/16 07:24 10 MG Tiotropium [place] (Spiriva Handihaler Inhaler) 1 puff DAILY INH 11/23/16 08:00 12/23/16 07:59 11/23/16 07:22 1 PUFF Bimatoprost (Lumigan 0.01%) 1 drops HS OP 11/22/16 21:00 12/22/16 20:59 11/22/16 20:45 1 DROPS Miscellaneous Information (Order Awaiting Action) 1 ea QS N/A 11/23/16 00:00 12/23/16 00:00 Psyllium Hydrophilic Mucilloid 1 pkt 1 pkt DAILY PO 11/23/16 08:00 12/23/16 07:59 Sodium Chloride (Nss 1000ml) 1,000 ml @ 100 mls/hr Q10H IV 11/22/16 17:15 12/22/16 17:14 11/23/16 12:53 100 MLS/HR (Pat Daniels, PA-C) Objective Vital Signs Date Time Temp Pulse Resp B/P Pulse Ox O2 Delivery O2 Flow Rate FiO2 11/23/16 11:59 36.4 83 18 108/69 96 Room Air 11/23/16 08:30 Room Air 11/23/16 07:44 36.6 82 18 121/75 96 Nasal Cannula 2.0 11/23/16 00:00 Room Air 11/23/16 00:00 36.4 80 20 108/65 93 2.0 11/22/16 20:00 Room Air 11/22/16 19:59 36.4 92 20 121/73 99 Nasal Cannula 2.0 11/22/16 16:00 36.5 97 24 145/86 96 Room Air (Pat Daniels ., PA-C) Physical Exam General Appearance: no apparent distress Eyes: normal inspection, PERRL ENT: hearing grossly normal Neck: supple Respiratory/Chest: no respiratory distress, no accessory muscle use, + decreased breath sounds (throughout all lung johnson ) Cardiovascular: regular rate, rhythm, + systolic murmur Abdomen: normal bowel sounds, non tender, soft Extremities: no pedal edema, no calf tenderness Neurologic/Psychiatric: alert, oriented x 3, + pertinent finding (anxious/ tearful ) Skin: normal color, warm/dry, no rash (Pat Daniels ., PA-C) Laboratory Results Last 24 Hours Test 11/22/16 16:55 11/23/16 07:20 White Blood Count 12.22 K/uL 9.81 K/uL Red Blood Count 3.66 M/uL 3.24 M/uL Hemoglobin 11.6 g/dL 10.5 g/dL Hematocrit 35.4 % 31.7 % Mean Corpuscular Volume 96.7 fL 97.8 fL Mean Corpuscular Hemoglobin 31.7 pg 32.4 pg Mean Corpuscular Hemoglobin Concent 32.8 g/dl 33.1 g/dl RDW Standard Deviation 52.2 fL 52.7 fL RDW Coefficient of Variation 14.7 % 14.7 % Platelet Count 317 K/uL 280 K/uL Mean Platelet Volume 9.8 fL 9.9 fL Prothrombin Time 11.2 SECONDS Prothromb Time International Ratio 1.0 Creatinine 0.84 mg/dl Est Creatinine Clear Calc Drug Dose 63.1 ml/min Estimated GFR () 83.4 Estimated GFR (Non- 71.9 (Pat Daniels, PA-C) Assessment and Plan 66 year old with PMH of Adenocarcinoma of the lung presents with worsening dysphagia and voice hoarseness after staging mediastinoscopy done 1 month ago Dysphagia and voice hoarseness: - Admit to med/surg - ENT consult (Dr. Suarez)- recommend transfer to [facility], Dr. Rodriguez - Video swallow on 11/23 - Speech therapy evaluate and treat -- Diet: pureed, nectar thick - IVF - Continue Percocet 1/2 tab at bedtime for pain Weakness: PT/OT consults Adenocarcinoma of the lung - Stage T1NO - Follows Dr. Casillas as outpatient COPD: - Continue prednisone tabs prescribed as outpatient - Continue regular inhalers - Continue 2L of oxygen (titrate to 88-92%) Hx of TIA: Continue Aspirin 81mg Hx of hyperlipidemia: Continue Atorvastatin Hx of glaucoma: Continue Bimatoprost Anxiety: Ativan PRN q8 hrs GI prophylaxis: Protonix DVT prophylaxis: Lovenox Dispo: ?transfer to [facility] or discharge to home vs placement w / scheduled follow-up on December 09 Brittney Galindo would like to be updated frequently- [phone] (Pat Daniels, BRENDA-C) PA Physician Supervision Note: I interviewed and examined the patient. Discussed with Pat Morley PAC and agree with findings and plan as documented in the note. Any exceptions or clarifications are listed here: None PT is sleeping but arouses easily, speaks in a breathy voice, admits to anxiety , is happy regarding Video swallow showing only need for nectar thick liquids vitals reviewed stable car is regular lungs clear but stridor with forceful expiration/inspiration vocal chord paralysis and aspiration, as per ENT consult will need referral for treatment, per family they do not feel she can return to home at this time, will need to discuss possible transfer vs temporary placement prior to appointment Documented By: Jf Velazquez (Jf Velazquez M.D.)
[2016-11-23 19:10] VITALS: BP 106/60; PULSE 84; TEMP 36.2; O2SAT 96
[2016-11-23] MEDS: MOMETASONE/FORMOTEROL (DULERA) INH INH SCH (19:32)
[2016-11-23] MEDS: BIMATOPROST 0.01% OP SOLN 2.5 ML BTL OP SCH (19:35)
[2016-11-23] MEDS: MONTELUKAST SOD 10 MG TAB PO SCH (19:39)
[2016-11-23] MEDS: ATORVASTATIN 40 MG TAB PO SCH (19:39)
[2016-11-23] MEDS: ENOXAPARIN 40 MG/0.4 ML SYR SQ SCH ×2 (19:40→21:28)
[2016-11-23 23:55] VITALS: BP 149/78; PULSE 77; TEMP 36.6; O2SAT 99
[2016-11-24] VITALS (8 sets, daily range): BP systolic 97–160; BP diastolic 66–82; PULSE 72–95; TEMP 36.6–36.9; O2SAT 91–98; BMI 28.0
[2016-11-24 07:27] LABS: MEAN CELL VOLUME 96.9 fL (80-100); MEAN CORPUSCULAR HEMOGLOBIN 32.5 pg (25-34); MEAN CORPUSCULAR HGB CONC 33.5 g/dl (32-36); MEAN PLATELET VOLUME 9.7 fL (7.4-10.4); PLATELET COUNT 307 K/uL (130-400); RED BLOOD COUNT 3.51 M/uL (4.2-5.4); WHITE BLOOD COUNT 9.98 K/uL (4.8-10.8)
[2016-11-24 07:51] LABS: BUN/CREATININE RATIO 10.8 (10-20); CALCIUM 8.1 mg/dl (8.5-10.1); CREATININE 0.82 mg/dl (0.60-1.20); POTASSIUM 3.5 mmol/L (3.5-5.1)
[2016-11-24 07:54] LABS: ALB/GLOB RATIO 0.7 (0.9-2)
[2016-11-24] MEDS: CALCIUM 600MG + VIT D 400 IU TAB PO SCH ×2 (08:00→20:11)
[2016-11-24] MEDS: PSYLLIUM 58.6% PWD PACK S\\F PO SCH (08:00)
[2016-11-24] MEDS: LORAZEPAM 0.5 MG TAB PO SCH ×3 (08:25→20:11)
[2016-11-24] MEDS: TIOTROPIUM BROMIDE 5 PUFF/90 MCG INH INH SCH (08:25)
[2016-11-24] MEDS: MOMETASONE/FORMOTEROL (DULERA) INH INH SCH ×2 (08:25→20:11)
[2016-11-24] MEDS: PANTOprazole SOD 40 MG TAB PO SCH (08:26)
[2016-11-24] MEDS: ASPIRIN 81 MG ECTAB PO SCH (08:26)
[2016-11-24] MEDS: SODIUM CHLORIDE 0.9% 1000ML 1,000 ML IV SCH ×2 (08:26→18:45)
--- NOTE | 2016-11-24 12:25 | Hospitalist Progress Note ---
Hospitalist Progress Note Date of Service November 24, 2016. (Pat Daniels ., PA-C) Subjective Pt evaluation today including: conversation w/ patient, conversation w/ family (sister, Clari), physical exam, chart review, lab review, review of studies, review of inpatient medication list Voiding: no voiding problems, no incontinence Patient states she is feeling well this morning. She was sitting in bedside chair eating breakfast. States she is tolerating diet well, with recommended diet and thickening supplement. She is currently on RA w/ no signs of SOB or distress. +anxiety. Patient denies any fever, chills, sweats, lightheadedness, dizziness, vision changes, CP, palpitations, edema, SOB, wheezing, cough, abdominal pain, nausea, vomiting, diarrhea, urinary symptoms, melena, numbness/ tingling, weakness, muscle/joint pain, depression, active bleeding, or new skin discoloration/changes. (Pat Daniels ., PA-C) Medications Current Inpatient Medications Medications (Trade) Dose Ordered Sig/Juan Route Start Time Stop Time Status Last Admin Dose Admin Enoxaparin Sodium (Lovenox Inj) 40 mg Q24H SQ 11/22/16 21:00 12/22/16 20:59 11/23/16 21:28 40 MG Acetaminophen (Tylenol Tab) 650 mg Q4H PRN PO 11/22/16 16:15 12/22/16 16:14 Al Hydrox/Mg Hydrox/Simethicone (Maalox Max Susp) 15 ml Q4H PRN PO 11/22/16 16:15 12/22/16 16:14 Magnesium Hydroxide (Milk Of Magnesia Susp) 30 ml Q6H PRN PO 11/22/16 16:15 12/22/16 16:14 Polyethylene (Miralax Powder Packet) 17 gm DAILY PRN PO 11/22/16 16:15 12/22/16 16:14 Ondansetron HCl (Zofran Inj) 4 mg Q6H PRN IV 11/22/16 16:15 12/22/16 16:14 Albuterol (Ventolin Hfa Inhaler) 2 puffs DAILY PRN INH 11/22/16 16:15 12/22/16 16:14 Aspirin (Ecotrin Tab) 81 mg DAILY PO 11/23/16 08:00 12/23/16 07:59 11/24/16 08:26 81 MG Atorvastatin Calcium (Lipitor Tab) 40 mg HS PO 11/22/16 21:00 12/22/16 20:59 11/23/16 19:39 40 MG Calcium/Vitamin D (Caltrate Plus Tab) 1 tab BID PO 11/22/16 20:00 12/22/16 19:59 11/23/16 19:34 1 TAB Folic Acid (Folvite Tab) 1 mg BID PO 11/22/16 20:00 12/22/16 19:59 11/24/16 08:26 1 MG Lorazepam (Ativan Tab) 0.5 mg TID PO 11/22/16 20:00 12/22/16 19:59 11/24/16 08:25 0.5 MG Montelukast Sodium (Singulair Tab) 10 mg HS PO 11/22/16 21:00 12/22/16 20:59 11/23/16 19:39 10 MG Oxycodone/ Acetaminophen (Percocet 5-325mg Tab) 1 tab Q6H PRN PO 11/22/16 16:15 12/06/16 16:14 11/24/16 10:29 1 TAB Pantoprazole Sodium (Protonix Tab) 40 mg DAILY PO 11/23/16 08:00 12/23/16 07:59 11/24/16 08:26 40 MG Prednisone (PredniSONE TAB) 10 mg DAILY PO 11/23/16 08:00 12/23/16 07:59 11/24/16 08:25 10 MG Tiotropium [place] (Spiriva Handihaler Inhaler) 1 puff DAILY INH 11/23/16 08:00 12/23/16 07:59 11/24/16 08:25 1 PUFF Bimatoprost (Lumigan 0.01%) 1 drops HS OP 11/22/16 21:00 12/22/16 20:59 11/23/16 19:35 1 DROPS Psyllium Hydrophilic Mucilloid 1 pkt 1 pkt DAILY PO 11/23/16 08:00 12/23/16 07:59 Sodium Chloride (Nss 1000ml) 1,000 ml @ 100 mls/hr Q10H IV 11/22/16 17:15 12/22/16 17:14 11/24/16 08:26 100 MLS/HR Mometasone Furoate/ Formoterol Fumar (Dulera 100-5 Mcg/Act) 2 puffs BID INH 11/23/16 20:00 12/23/16 19:59 11/24/16 08:25 2 PUFFS (Pat Daniels, BRENDA-C) Objective Vital Signs Date Time Temp Pulse Resp B/P Pulse Ox O2 Delivery O2 Flow Rate FiO2 11/24/16 12:11 77 108/72 11/24/16 11:20 36.6 86 16 97/66 96 Nasal Cannula 2.0 11/24/16 09:00 Room Air 11/24/16 07:28 36.9 95 20 120/74 96 Nasal Cannula 2.0 11/24/16 04:37 36.7 84 20 121/73 96 Nasal Cannula 2.0 11/24/16 00:00 Nasal Cannula 2.0 11/23/16 23:55 36.6 77 20 149/78 99 Nasal Cannula 2.0 11/23/16 19:10 36.2 84 18 106/60 96 Room Air 11/23/16 18:00 Nasal Cannula 2.0 11/23/16 15:06 36.7 74 16 101/69 97 Nasal Cannula 2.0 (Pat Daniels, BRENDA-C) Physical Exam General Appearance: no apparent distress Eyes: normal inspection, PERRL ENT: hearing grossly normal, + muffled/hoarse voice Neck: supple Respiratory/Chest: no respiratory distress, no accessory muscle use, + decreased breath sounds (throughout) Cardiovascular: regular rate, rhythm Abdomen: normal bowel sounds, non tender, soft Extremities: no pedal edema, no calf tenderness Neurologic/Psychiatric: alert, oriented x 3, + pertinent finding (anxious/ tearful) Skin: normal color, warm/dry, no rash (Pat Daniels ., PA-C) Laboratory Results Last 24 Hours Test 11/24/16 07:09 White Blood Count 9.98 K/uL Red Blood Count 3.51 M/uL Hemoglobin 11.4 g/dL Hematocrit 34.0 % Mean Corpuscular Volume 96.9 fL Mean Corpuscular Hemoglobin 32.5 pg Mean Corpuscular Hemoglobin Concent 33.5 g/dl RDW Standard Deviation 52.4 fL RDW Coefficient of Variation 14.7 % Platelet Count 307 K/uL Mean Platelet Volume 9.7 fL Sodium Level 142 mmol/L Potassium Level 3.5 mmol/L Chloride Level 109 mmol/L Carbon Dioxide Level 27 mmol/L Anion Gap 6.0 mmol/L Blood Urea Nitrogen 9 mg/dl Creatinine 0.82 mg/dl Est Creatinine Clear Calc Drug Dose 65.6 ml/min Estimated GFR () 85.8 Estimated GFR (Non- 74.0 BUN/Creatinine Ratio 10.8 Random Glucose 87 mg/dl Calcium Level 8.1 mg/dl Total Bilirubin 0.4 mg/dl Aspartate Amino Transf (AST/SGOT) 11 U/L Alanine Aminotransferase (ALT/SGPT) 22 U/L Alkaline Phosphatase 85 U/L Total Protein 6.6 gm/dl Albumin 2.8 gm/dl Globulin 3.8 gm/dl Albumin/Globulin Ratio 0.7 (Pat Daniels, PA-C) Assessment and Plan 66 year old with PMH of Adenocarcinoma of the lung presents with worsening dysphagia and voice hoarseness after staging mediastinoscopy done 1 month ago Dysphagia and voice hoarseness: - Admit to med/surg - ENT consult (Dr. Suarez)- recommend transfer to [facility], Dr. Rodriguez - Video swallow on 11/23 - Speech therapy evaluate and treat -- Diet: pureed, nectar thick - IVF - Continue Percocet 1/2 tab at bedtime for pain Weakness: PT/OT consults Adenocarcinoma of the lung - Stage T1NO - Follows Dr. Casillas as outpatient COPD: - Continue prednisone tabs prescribed as outpatient - Continue regular inhalers - Continue 2L of oxygen (titrate to 88-92%) Hx of TIA: Continue Aspirin 81mg Hx of hyperlipidemia: Continue Atorvastatin Hx of glaucoma: Continue Bimatoprost Anxiety: - Ativan 0.5 mg TID - Start Effexor 37.5 mg daily GI prophylaxis: Protonix DVT prophylaxis: Lovenox Dispo: ?transfer to [facility] or discharge to home vs placement w / scheduled follow-up on December 09 - PT/OT recommending acute rehab- case management notified- likely will be discharge to placement w/ follow-up Brittney Galindo would like to be updated frequently- [phone] (Pat Daniels ., PA-C) PA Physician Supervision Note: I interviewed and examined the patient. Discussed with Pat Murarick PAC and agree with findings and plan as documented in the note. Any exceptions or clarifications are listed here: None PT speaks in a breathy voice, admits to anxiety, is tearful and agrees to antidepressant, is tolerating nectar thick liquids vitals reviewed stable car is regular lungs clear but stridor with forceful expiration/inspiration vocal chord paralysis and aspiration, as per ENT consult will need referral for treatment, per family they do not feel she can return to home at this time, I phoned Dr Rodriguez in [facility], [place] and am awaiting a call back Documented By: Jf Velazquez (Jf Velazquez M.D.)
[2016-11-24] MEDS: VENLAFAXINE HCL XR 37.5 MG CAPXR PO SCH (13:36)
[2016-11-24] MEDS: BIMATOPROST 0.01% OP SOLN 2.5 ML BTL OP SCH (20:13)
[2016-11-24] MEDS: ATORVASTATIN 40 MG TAB PO SCH (20:13)
[2016-11-24] MEDS: MONTELUKAST SOD 10 MG TAB PO SCH (20:13)
[2016-11-24] MEDS: ENOXAPARIN 40 MG/0.4 ML SYR SQ SCH (21:04)
[2016-11-25] VITALS (8 sets, daily range): BP systolic 118–155; BP diastolic 78–90; PULSE 74–94; TEMP 36.4–36.7; O2SAT 94–99; BMI 28.0
[2016-11-25] MEDS: SODIUM CHLORIDE 0.9% 1000ML 1,000 ML IV SCH ×2 (03:56→14:03)
[2016-11-25 07:00] LABS: HEMATOCRIT 31.1 % (37-47); MEAN CELL VOLUME 95.4 fL (80-100); MEAN CORPUSCULAR HEMOGLOBIN 31.3 pg (25-34); MEAN CORPUSCULAR HGB CONC 32.8 g/dl (32-36); MEAN PLATELET VOLUME 9.4 fL (7.4-10.4); PLATELET COUNT 266 K/uL (130-400); RED BLOOD COUNT 3.26 M/uL (4.2-5.4)
[2016-11-25] MEDS: TIOTROPIUM BROMIDE 5 PUFF/90 MCG INH INH SCH (07:20)
[2016-11-25] MEDS: MOMETASONE/FORMOTEROL (DULERA) INH INH SCH ×2 (07:20→20:03)
[2016-11-25] MEDS: VENLAFAXINE HCL XR 37.5 MG CAPXR PO SCH (07:21)
[2016-11-25] MEDS: ASPIRIN 81 MG ECTAB PO SCH (07:21)
[2016-11-25] MEDS: CALCIUM 600MG + VIT D 400 IU TAB PO SCH ×2 (07:21→20:04)
[2016-11-25] MEDS: PSYLLIUM 58.6% PWD PACK S\\F PO SCH (07:22)
[2016-11-25] MEDS: PANTOprazole SOD 40 MG TAB PO SCH (07:22)
[2016-11-25] MEDS: LORAZEPAM 0.5 MG TAB PO SCH ×3 (07:26→20:03)
[2016-11-25 07:35] LABS: CREATININE 0.59 mg/dl (0.60-1.20)
--- NOTE | 2016-11-25 11:08 | Hospitalist Progress Note ---
Hospitalist Progress Note Date of Service November 25, 2016. (Pat Daniels ., PA-C) Subjective Pt evaluation today including: conversation w/ patient, conversation w/ family (Sister, Clari ), physical exam, chart review, lab review, review of studies, review of inpatient medication list Voiding: no voiding problems, no incontinence Patient states she is feeling well this AM. Does not feel anxious today. She ate breakfast without difficulty. States she is "starting to feel like herself again." Her biggest complaint at this point is not having a voice. Dr. Velazquez placed a call to Dr. Rodriguez, waiting for a return call. Patient denies any fever, chills, sweats, lightheadedness, dizziness, vision changes, CP, palpitations, edema, SOB, wheezing, cough, abdominal pain, nausea, vomiting, diarrhea, urinary symptoms, melena, numbness/tingling, weakness, muscle/joint pain, anxiety/depression, active bleeding, or new skin discoloration/changes. (Pat Daniels ., PA-C) Medications Current Inpatient Medications Medications (Trade) Dose Ordered Sig/Juan Route Start Time Stop Time Status Last Admin Dose Admin Enoxaparin Sodium (Lovenox Inj) 40 mg Q24H SQ 11/22/16 21:00 12/22/16 20:59 11/24/16 21:04 40 MG Acetaminophen (Tylenol Tab) 650 mg Q4H PRN PO 11/22/16 16:15 12/22/16 16:14 Al Hydrox/Mg Hydrox/Simethicone (Maalox Max Susp) 15 ml Q4H PRN PO 11/22/16 16:15 12/22/16 16:14 Magnesium Hydroxide (Milk Of Magnesia Susp) 30 ml Q6H PRN PO 11/22/16 16:15 12/22/16 16:14 Polyethylene (Miralax Powder Packet) 17 gm DAILY PRN PO 11/22/16 16:15 12/22/16 16:14 Ondansetron HCl (Zofran Inj) 4 mg Q6H PRN IV 11/22/16 16:15 12/22/16 16:14 Albuterol (Ventolin Hfa Inhaler) 2 puffs DAILY PRN INH 11/22/16 16:15 12/22/16 16:14 Aspirin (Ecotrin Tab) 81 mg DAILY PO 11/23/16 08:00 12/23/16 07:59 11/25/16 07:21 81 MG Atorvastatin Calcium (Lipitor Tab) 40 mg HS PO 11/22/16 21:00 12/22/16 20:59 11/24/16 20:13 40 MG Calcium/Vitamin D (Caltrate Plus Tab) 1 tab BID PO 11/22/16 20:00 12/22/16 19:59 11/25/16 07:21 1 TAB Folic Acid (Folvite Tab) 1 mg BID PO 11/22/16 20:00 12/22/16 19:59 11/25/16 07:21 1 MG Lorazepam (Ativan Tab) 0.5 mg TID PO 11/22/16 20:00 12/22/16 19:59 11/25/16 07:26 0.5 MG Montelukast Sodium (Singulair Tab) 10 mg HS PO 11/22/16 21:00 12/22/16 20:59 11/24/16 20:13 10 MG Oxycodone/ Acetaminophen (Percocet 5-325mg Tab) 1 tab Q6H PRN PO 11/22/16 16:15 12/06/16 16:14 11/24/16 10:29 1 TAB Pantoprazole Sodium (Protonix Tab) 40 mg DAILY PO 11/23/16 08:00 12/23/16 07:59 11/25/16 07:22 40 MG Prednisone (PredniSONE TAB) 10 mg DAILY PO 11/23/16 08:00 12/23/16 07:59 11/25/16 07:22 10 MG Tiotropium [place] (Spiriva Handihaler Inhaler) 1 puff DAILY INH 11/23/16 08:00 12/23/16 07:59 11/25/16 07:20 1 PUFF Bimatoprost (Lumigan 0.01%) 1 drops HS OP 11/22/16 21:00 12/22/16 20:59 11/24/16 20:13 1 DROPS Psyllium Hydrophilic Mucilloid 1 pkt 1 pkt DAILY PO 11/23/16 08:00 12/23/16 07:59 Sodium Chloride (Nss 1000ml) 1,000 ml @ 100 mls/hr Q10H IV 11/22/16 17:15 12/22/16 17:14 11/25/16 03:56 100 MLS/HR Mometasone Furoate/ Formoterol Fumar (Dulera 100-5 Mcg/Act) 2 puffs BID INH 11/23/16 20:00 12/23/16 19:59 11/25/16 07:20 2 PUFFS Venlafaxine HCl (effeXOR EXTENDED REL CAP) 37.5 mg QAM PO 11/24/16 14:00 12/24/16 13:59 11/25/16 07:21 37.5 MG (Pat Daniels PA-C) Objective Vital Signs Date Time Temp Pulse Resp B/P Pulse Ox O2 Delivery O2 Flow Rate FiO2 11/25/16 07:26 Room Air 11/25/16 04:24 36.7 84 20 151/78 94 Nasal Cannula 2.0 11/25/16 00:25 Room Air 11/24/16 23:38 36.6 72 20 160/81 98 Nasal Cannula 2.0 11/24/16 19:48 36.6 73 18 131/82 91 11/24/16 16:00 91 Room Air 2.0 11/24/16 15:32 36.6 84 20 108/69 91 Room Air 11/24/16 12:11 77 108/72 11/24/16 11:20 36.6 86 16 97/66 96 Nasal Cannula 2.0 (Pat Daniels PA-C) Physical Exam General Appearance: no apparent distress Eyes: normal inspection, PERRL ENT: hearing grossly normal, + muffled/hoarse voice Neck: supple Respiratory/Chest: lungs clear, no respiratory distress, no accessory muscle use Cardiovascular: regular rate, rhythm Abdomen: normal bowel sounds, non tender, soft Extremities: no pedal edema, no calf tenderness Neurologic/Psychiatric: alert, normal mood/affect, oriented x 3 Skin: normal color, warm/dry, no rash (Pat Daniels PA-C) Laboratory Results Last 24 Hours Test 11/25/16 06:35 White Blood Count 8.00 K/uL Red Blood Count 3.26 M/uL Hemoglobin 10.2 g/dL Hematocrit 31.1 % Mean Corpuscular Volume 95.4 fL Mean Corpuscular Hemoglobin 31.3 pg Mean Corpuscular Hemoglobin Concent 32.8 g/dl RDW Standard Deviation 50.1 fL RDW Coefficient of Variation 14.3 % Platelet Count 266 K/uL Mean Platelet Volume 9.4 fL Creatinine 0.59 mg/dl Est Creatinine Clear Calc Drug Dose 91.3 ml/min Estimated GFR () 109.9 Estimated GFR (Non- 94.8 (Pat Daniels ., PA-C) Assessment and Plan 66 year old with PMH of Adenocarcinoma of the lung presents with worsening dysphagia and voice hoarseness after staging mediastinoscopy done 1 month ago Dysphagia and voice hoarseness: - Admit to med/surg - ENT consult (Dr. Suarez)- recommend transfer to [facility], Dr. Rodriguez - Video swallow on 11/23 - Speech therapy evaluate and treat -- Diet: pureed, nectar thick - IVF - Continue Percocet 1/2 tab at bedtime for pain Weakness: PT/OT consults Adenocarcinoma of the lung - Stage T1NO - Follows Dr. Casillas as outpatient COPD: - Continue prednisone tabs prescribed as outpatient - Continue regular inhalers - Continue 2L of oxygen (titrate to 88-92%) Hx of TIA: Continue Aspirin 81mg Hx of hyperlipidemia: Continue Atorvastatin Hx of glaucoma: Continue Bimatoprost Anxiety: - Ativan 0.5 mg TID - Start Effexor 37.5 mg daily on 11/25- will likely increase to 75 mg at discharge GI prophylaxis: Protonix DVT prophylaxis: Lovenox Dispo: ?transfer to [facility] (waiting for Dr. Rodriguez to return call) or discharge to placement w/ scheduled follow-up on December 09 - PT/OT recommending acute rehab- case management notified; referrals placed Brittney Galindo would like to be updated frequently- [phone] (Pat Daniels ., PA-C) PA Physician Supervision Note: I interviewed and examined the patient. Discussed with Pat Morley PAC and agree with findings and plan as documented in the note. Any exceptions or clarifications are listed here: None PT speaks in a breathy voice, imprpved anxiety, is tolerating nectar thick liquids vitals reviewed stable car is regular lungs clear able to tolerate modest movement vocal chord paralysis and aspiration, as per ENT consult will need referral for treatment, per family they do not feel she can return to home at this time, I phoned Dr Rodriguez in [facility] and am still awaiting a call back as of 11/25 Documented By: Jf Velazquez (Jf Velazquez M.D.)
--- NOTE | 2016-11-25 16:05 | Discharge Instructions ---
Discharge Instructions Date of Service November 25, 2016. Admission Reason for Admission: Hemoptysis, Lung Cancer, Copd Discharge Discharge Diagnosis / Problem: vocal chord paralysis, stridor Discharge Goals Goal(s): Diagnostic testing, Therapeutic intervention Activity Recommendations Activity Limitations: as noted below Lifting Limitations: until after follow-up appointment Exercise/Sports Limitations: until after follow-up appointment . Current Hospital Diet Patient's current hospital diet: N/A Discharge Diet Recommended Diet: Regular Diet Liquid Consistency: [place] Thick Pending Studies Studies pending at discharge: no Medical Emergencies . Who to Call and When: Medical Emergencies: If at any time you feel your situation is an emergency, please call 911 immediately. . Non-Emergent Contact Non-Emergency issues call your: Primary Care Provider Call Non-Emergent contact if: temperature is above 101, your pain is unusual for you . . "Provider Documentation" section prepared by Jf Velazquez. . VTE Core Measure Inpt VTE Proph given/why not?: Enoxaparin (Lovenox)SQ
[2016-11-25] MEDS ORDERED: LORAZEPAM 0.5 MG TAB PO PRN (17:15)
--- NOTE | 2016-11-25 17:34 | Discharge Summary ---
Discharge Summary Date of Service November 25, 2016. Discharge Summary Admission Date: November 22, 2016 at 14:17 Discharge Date: November 25, 2016 Discharge Disposition: Acute care facility Principal Diagnosis: vocal chord paralysis, stridor, transfer for specialty care Medication Reconciliation Continued Medications: Albuterol Hfa (Ventolin Hfa) 200 Puffs/77365 Mcg Aers 2 PUFFS INH DAILY PRN for Shortness of Breath, #1 INHALER Aspirin (Aspirin Ec) 81 Mg Tab 81 MG PO DAILY Atorvastatin (Lipitor) 40 Mg Tab 1 TAB PO HS for 90 Days, #90 TAB 3 Refills Bimatoprost (Lumigan) 0.01 % Marlene 1 DROPS OP HS for 90 Days, #7.5 ML 3 Refills Calcium/Vitamin D (Os-Nate 500 Plus D) Tab 1 TAB PO BID, TAB Celecoxib (CeleBREX) 200 Mg Cap 200 MG PO DAILY, CAP Folic Acid (Folvite) 1 Mg Tab 1 TAB PO BID for 90 Days, #180 TAB 1 Refill Gabapentin (Neurontin) 100 Mg Cap 100 MG PO TID, CAP Lorazepam (Ativan) 0.5 Mg Tab 0.5 MG PO TID, TAB Mometasone Furoate-Formoterol (Dulera 200/5 Mcg) 1 Aer Aer 2 PUFFS INH BID for 30 Days, #13 GM 5 Refills Montelukast Sodium (Singulair) 10 Mg Tab 10 MG PO HS, TAB Oxycodone/Acetaminophen 5MG/325MG (Percocet 5MG/325MG) Tab 1 TABLET PO Q6H PRN for Pain, TAB PAIN Oxygen (Oxygen) Gas 2 LITERS NA HS Pantoprazole (Protonix) 40 Mg Tab 40 MG PO DAILY, #30 TAB Prednisone (Prednisone) 10 Mg Tab 10 MG PO DAILY, TAB Psyllium (Metamucil Smooth Texture) 28 % Pow 1 DOSE PO DAILY Tiotropium [place] (Spiriva Handihaler) 30 Puff/540 Mcg Aerp 1 CAP INH DAILY for 30 Days, #30 CAP 3 Refills Discharge Exam pt was seen prior to transfer, upon mild exertion became breathless and spoke in short sentences lungs are without wheezes and fair airmovment with upper airway breath sounds see notes from earlier visits today for more PE and ROS Hospital Course 66 F vocal chord paralysis and aspiration, as per ENT consult will need referral for treatment, per family they do not feel she can return to home at this time, I phoned Dr Rodriguez in [facility] and he has agreed to transfer and evaluation Here did have VFSS, shows aspiration of thin liquids recommending nectar thick recurrent non small cell cancer, wedge resection 08/27 Adenocarcinoma of the lung - Stage T1NO COPD: - Continue prednisone tabs prescribed as outpatient - Continue regular inhalers - Continue 2L of oxygen (titrate to 88-92%) Hx of TIA: Continue Aspirin 81mg Hx of hyperlipidemia: Continue Atorvastatin Hx of glaucoma: Continue Bimatoprost Anxiety: - Ativan 0.5 mg TID - symptomatic improvement after starting Effexor 37.5 mg daily on 11/25 GI prophylaxis: Protonix DVT prophylaxis: Lovenox Documented By: Jf Velazquez Total Time Spent: Greater than 30 minutes This includes examination of the patient, discharge planning, medication reconciliation, and communication with other providers. Discharge Instructions Please refer to the electronic Patient Visit Report (Discharge Instructions) for additional information.
[2016-11-25] MEDS: MONTELUKAST SOD 10 MG TAB PO SCH (20:05)
[2016-11-25] MEDS: ATORVASTATIN 40 MG TAB PO SCH (20:05)
[2016-11-25] MEDS: BIMATOPROST 0.01% OP SOLN 2.5 ML BTL OP SCH (20:05)
[2016-11-25] MEDS: ENOXAPARIN 40 MG/0.4 ML SYR SQ SCH (22:10)
[2016-11-26] MEDS: SODIUM CHLORIDE 0.9% 1000ML 1,000 ML IV SCH (01:43)
[2016-11-26 04:02] VITALS: BP 147/87; PULSE 80; TEMP 36.3; O2SAT 95
[2016-11-26 06:00] VITALS: Ht 162.6 cm; Wt 73.4 kg
[2016-11-26 06:02] LABS: HEMATOCRIT 30.7 % (37-47); MEAN CELL VOLUME 95.3 fL (80-100); MEAN CORPUSCULAR HEMOGLOBIN 31.4 pg (25-34); MEAN CORPUSCULAR HGB CONC 32.9 g/dl (32-36); MEAN PLATELET VOLUME 9.3 fL (7.4-10.4); PLATELET COUNT 262 K/uL (130-400); RED BLOOD COUNT 3.22 M/uL (4.2-5.4); WHITE BLOOD COUNT 7.96 K/uL (4.8-10.8)
[2016-11-26 07:16] VITALS: BP 117/76; PULSE 86; TEMP 36.7; O2SAT 95
[2016-11-26] MEDS: LORAZEPAM 0.5 MG TAB PO SCH (07:16)
== END 2016-11-26 07:25 | disposition short-term general hospital (02) | DRG 182 ==
LOC: C.4E 14:17
PROVIDERS: ADMIT Internal Medicine; ATTEND Internal Medicine
DX: C34.90 Malignant neoplasm of unspecified part of unspecified bronchus or lung (principal); J38.00 Paralysis of vocal cords and larynx, unspecified; J44.9 Chronic obstructive pulmonary disease, unspecified; E78.5 Hyperlipidemia, unspecified; F41.9 Anxiety disorder, unspecified; K21.9 Gastro-esophageal reflux disease without esophagitis; Z87.891 Personal history of nicotine dependence; Z79.82 Long term (current) use of aspirin; Z99.81 Dependence on supplemental oxygen; Z86.73 Personal history of transient ischemic attack (TIA), and cerebral infarction without residual deficits

== ENCOUNTER → 2017-03-18 | Outpatient (CLI) | payer OTHER ==
[~2017-03-18] MED LIST changes: +OPTIRAY 320 IV PRN
--- NOTE | 2017-03-18 11:32 | DIAGNOSTIC IMAGING REPORT ---
CHEST CT WITH CONTRAST CT DOSE: 271.80 mGycm HISTORY: Follow-up study in a patient with history of lung cancer. Subsequent treatment strategy LUNG CA history of prior left upper lobe wedge resection. TECHNIQUE: Multiaxial CT images of the chest were performed following the intravenous administration of 94 mL Optiray 320. A dose lowering technique was utilized adhering to the principles of ALARA. COMPARISON: PET CT 09/29/2016, chest CT 09/07/2016. FINDINGS: No dominant thyroid nodule is identified. No new suspicious or enlarged lymph nodes are seen about the chest. Unchanged 5 mm right hilar lymph node. The heart is normal in size without pericardial effusion. There are calcifications of the aortic annulus and aortic arch. The opacified pulmonary arterial tree is unremarkable without focal filling defects identified. Suture material within the left upper lobe is again seen, unchanged from PET CT 09/29/2016 compatible with prior wedge resection. The previously noted 6 mm nodular density adjacent to the suture material is no longer identified. Moderate upper lobe predominant paraseptal and centrilobular emphysematous changes are noted. There is mild left basilar atelectasis. There is compensatory hyperinflation of the left lung with postsurgical/posttreatment related changes again seen within the right lung. Right perihilar masslike area of fibrotic change and consolidation is again seen measuring up proximally 7.5 x 5.0 cm in AP and transverse dimension, previously measuring 8.4 x [address] chest 09/07/2016 and approximately 8.1 x 4.9 cm on PET/CT 09/29/2016. Central calcifications are again seen within this area without significant change from prior. No new pulmonary nodules or suspicious findings of the lungs identified. No pneumothorax or pleural effusion. Central airways are patent. Mild secretions are seen within the esophagus. The upper abdominal structures demonstrate no acute abnormality. Mild nodularity adjacent to the posterior right hepatic lobe is again seen, 4 mm which is nonspecific and unchanged. No FDG avid disease seen within this distribution on comparison PET. Soft tissues are unremarkable. Probable endochondroma of the proximal right humerus is seen which did not demonstrate FDG verity on comparison. No suspicious lytic or blastic bony lesions. Subacute to chronic bilateral rib fractures are noted. IMPRESSION: 1. Prior wedge resection of the left upper lobe with resolution of the previously noted 6 mm pulmonary nodule adjacent to the suture material seen on comparison PET CT 09/29/2016. 2. Right perihilar partially calcified consolidation/fibrosis is unchanged in size and appearance. 3. No new or enlarged mediastinal or hilar lymph nodes identified. 4. Emphysema. 5. Subacute to chronic bilateral rib fractures. Electronically signed by: Nasim Ross M.D. 03/18/2017 11:31 AM Dictated Date/Time: 03/18/2017 11:16 AM
== END | disposition home or self-care (01) ==
LOC: C.CTS 10:18
PROVIDERS: ATTEND Internal Medicine Hematology & Oncology
DX: J43.9 Emphysema, unspecified (principal); C34.90 Malignant neoplasm of unspecified part of unspecified bronchus or lung; Z99.81 Dependence on supplemental oxygen; Z86.73 Personal history of transient ischemic attack (TIA), and cerebral infarction without residual deficits

== ENCOUNTER → 2017-05-23 | Outpatient (CLI) | payer OTHER ==
--- NOTE | 2017-05-23 12:15 | DIAGNOSTIC IMAGING REPORT ---
CHEST CT WITH CONTRAST CT DOSE: 283.95 mGycm HISTORY: LUNG Adenocarcinoma; small CELL LUNG CANCER TECHNIQUE: Multiaxial CT images of the chest were performed following the intravenous administration of contrast. A dose lowering technique was utilized adhering to the principles of ALARA. COMPARISON: Chest CT 03/18/2017. FINDINGS: No new suspicious or enlarged lymph nodes are seen about the chest. The heart is normal in size without pericardial effusion. There are calcifications of the aortic annulus and aortic arch. The opacified pulmonary arterial tree is unremarkable without focal filling defects identified. Suture material within the left upper lobe is again seen, unchanged compatible with prior wedge resection. No suspicious pulmonary nodules. Moderate emphysematous changes are noted. There is mild left basilar atelectasis. There is compensatory hyperinflation of the left lung with postsurgical/posttreatment related changes again seen within the right lung. Right perihilar consolidation consistent with fibrotic change is again seen measuring up proximally 7.5 x 5.0 cm, unchanged. Central calcifications are again seen within this area without significant change from prior. No pneumothorax or pleural effusion. Central airways are patent. Mild secretions are seen within the esophagus. The upper abdominal structures demonstrate no acute abnormality. Mild nodularity adjacent to the posterior right hepatic lobe is again seen, 4 mm which is nonspecific and unchanged. No suspicious lytic or blastic bony lesions. Old, healed bilateral rib fractures are noted. IMPRESSION: 1. No significant change compared the prior study. 2. Right perihilar partially calcified consolidation/fibrosis is unchanged in size and appearance. 3. No new or enlarged mediastinal or hilar lymph nodes identified. 4. Emphysema. Electronically signed by: Maico Kingston M.D. 05/23/2017 12:13 PM Dictated Date/Time: 05/23/2017 12:03 PM
== END | disposition home or self-care (01) ==
LOC: C.CTS 11:18
PROVIDERS: ATTEND Internal Medicine Hematology & Oncology
DX: C34.12 Malignant neoplasm of upper lobe, left bronchus or lung (principal); C34.2 Malignant neoplasm of middle lobe, bronchus or lung; J43.9 Emphysema, unspecified

== ENCOUNTER → 2018-02-21 | Outpatient (CLI) | payer OTHER ==
[~2018-02-21] MED LIST changes: +ACET-1256 PO; +ACET300T3 PO; +ALBUAER INH; +ASPI325T39 PO; -ASPI81TA28 PO; +BISA10SU5 PR; +CHOL2000 PO; +DOCU100C31 PO; +ENOX40IN SQ; +FLUT1INH INH; -FOLI1TAB7 PO; +FOLI1TAB8 PO; -GABA-112 PO; +GUAI1TAB55 PO; +IPRA-64 INH; -MOME200A INH; +MOMLX PO; +NRN100 PO; +ONDA4TAB46 PO; -OPTIRAY 320 IV PRN; -OXYC-57 PO; +POLY335019 PO; +SENN-65 PO; +SODIENE PR; -SPRIN/30 INH; +UMEC1INH INH
== END | disposition home or self-care (01) ==
LOC: C.RDSM 08:50
PROVIDERS: ATTEND Orthopaedic Surgery Sports Medicine
DX: Z09 Encounter for follow-up examination after completed treatment for conditions other than malignant neoplasm (principal); Z98.890 Other specified postprocedural states